=== PATIENT | female | born 1955 | race Hispanic/Latino ===

== ENCOUNTER 2018-04-26 01:33 | Inpatient (IN) | payer OTHER ==
[2018-04-26] MEDS ORDERED: NORMODYNE IV ONE (02:19)
--- NOTE | 2018-04-26 02:19 | Emergency Department Report ---
ED General Adult HPI - General Chief complaint: High BP Stated complaint: HEADACHE/AMS Time Seen by Provider: 04/26/18 02:11 Source: patient, EMS Mode of arrival: Stretcher Limitations: No Limitations - History of Present Illness Initial comments: Patient is that she was feeling dizzy and confused yesterday. -: Sudden, This evening Location: head Radiation: non-radiation Severity scale (0 -10): 6 Consistency: intermittent Improves with: none Worsens with: none Associated Symptoms: confusion, headaches Treatments Prior to Arrival: none - Related Data Allergies Allergy/AdvReac Type Severity Reaction Status Date / Time codeine Allergy Unknown Verified 04/26/18 01:46 meperidine Allergy Unknown Verified 04/26/18 01:46 Penicillins Allergy Unknown Verified 04/26/18 01:46 ED Review of Systems ROS: Stated complaint: HEADACHE/AMS Other details as noted in HPI Comment: All other systems reviewed and negative Constitutional: denies: chills, fever Eyes: denies: eye pain, eye discharge, vision change ENT: denies: ear pain, throat pain Respiratory: denies: cough, shortness of breath, wheezing Cardiovascular: denies: chest pain, palpitations Endocrine: no symptoms reported Gastrointestinal: denies: abdominal pain, nausea, diarrhea Genitourinary: denies: urgency, dysuria, discharge Musculoskeletal: denies: back pain, joint swelling, arthralgia Skin: denies: rash, lesions Neurological: headache, confusion. denies: weakness, paresthesias Psychiatric: denies: anxiety, depression Hematological/Lymphatic: denies: easy bleeding, easy bruising ED Past Medical Hx - Past Medical History Previous Medical History?: Yes Hx Deep Vein Thrombosis: Yes (left leg) Hx Pulmonary Embolism: Yes (right lung) Hx Arthritis: Yes (knees) - Surgical History Past Surgical History?: No Hx Cholecystectomy: Yes - Social History Smoking Status: Never Smoker Substance Use Type: None ED Physical Exam - General Limitations: No Limitations General appearance: alert, in no apparent distress - Head Head exam: Present: atraumatic, normocephalic - Eye Eye exam: Present: normal appearance, PERRL, EOMI Pupils: Present: normal accommodation - ENT ENT exam: Present: normal exam, normal orophraynx, mucous membranes moist - Neck Neck exam: Present: normal inspection - Respiratory Respiratory exam: Present: normal lung sounds bilaterally. Absent: respiratory distress, wheezes, rales, rhonchi - Cardiovascular Cardiovascular Exam: Present: regular rate, normal rhythm. Absent: systolic murmur, diastolic murmur, rubs, gallop - GI/Abdominal GI/Abdominal exam: Present: soft, normal bowel sounds - Extremities Exam Extremities exam: Present: normal inspection, normal capillary refill - Back Exam Back exam: Present: normal inspection - Neurological Exam Neurological exam: Present: alert, oriented X3 - Psychiatric Psychiatric exam: Present: normal affect, normal mood - Skin Skin exam: Present: warm, dry, intact, normal color. Absent: rash ED Course Vital Signs 04/26/18 04/26/18 04/26/18 01:44 01:55 02:00 Temperature Pulse Rate 89 Respiratory 18 15 Rate Blood Pressure 205/105 O2 Sat by Pulse 94 93 Oximetry 04/26/18 04/26/18 04/26/18 02:15 02:30 02:45 Temperature Pulse Rate 106 H 93 H 91 H Respiratory 15 14 16 Rate Blood Pressure 215/139 189/106 189/106 O2 Sat by Pulse 96 96 94 Oximetry 04/26/18 04/26/18 04/26/18 03:00 04:07 04:14 Temperature 98.6 F Pulse Rate 82 86 Respiratory 13 Rate Blood Pressure 155/78 155/78 O2 Sat by Pulse 92 95 Oximetry 04/26/18 04:15 Temperature Pulse Rate 87 Respiratory 14 Rate Blood Pressure 155/78 O2 Sat by Pulse 94 Oximetry - Consultations Consultation #1: 04/26/18 05:37 I called [facility] and spoke to Dr Cavazos who recommend that patient be admitted and treated at [facility]. Consultation #2: 04/26/18 05:38 Dr Jay to admit patient for further management. ED Medical Decision Making - Lab Data Result diagrams: 04/26/18 02:27 04/26/18 02:27 Lab Results 04/26/18 04/26/18 04/26/18 Range/Units 02:27 02:27 02:27 WBC 10.8 (4.5-11.0) K/mm3 RBC 4.75 (3.65-5.03) M/mm3 Hgb 14.1 (10.1-14.3) gm/dl Hct 40.4 (30.3-42.9) % MCV 85 (79-97) fl MCH 30 (28-32) pg MCHC 35 H (30-34) % RDW 13.5 (13.2-15.2) % Plt Count 276 (140-440) K/mm3 Lymph % (Auto) 20.2 (13.4-35.0) % [place] % (Auto) 7.1 (0.0-7.3) % Eos % (Auto) 3.0 (0.0-4.3) % Baso % (Auto) 1.1 (0.0-1.8) % Lymph # 2.2 (1.2-5.4) K/mm3 [place] # 0.8 (0.0-0.8) K/mm3 Eos # 0.3 (0.0-0.4) K/mm3 Baso # 0.1 (0.0-0.1) K/mm3 Seg Neutrophils % 68.6 (40.0-70.0) % Seg Neutrophils # 7.4 (1.8-7.7) K/mm3 PT 12.9 (12.2-14.9) Sec. INR 0.92 (0.87-1.13) APTT 21.6 L (24.2-36.6) Sec. Sodium 139 (137-145) mmol/L Potassium 3.4 L (3.6-5.0) mmol/L Chloride 99.3 (98-107) mmol/L Carbon Dioxide 25 (22-30) mmol/L Anion Gap 18 mmol/L BUN 12 (7-17) mg/dL Creatinine 0.7 (0.7-1.2) mg/dL Estimated GFR > 60 ml/min BUN/Creatinine Ratio 17 % Glucose 157 H (65-100) mg/dL Calcium 9.3 (8.4-10.2) mg/dL Total Bilirubin 0.30 (0.1-1.2) mg/dL AST 23 (5-40) units/L ALT 26 (7-56) units/L Alkaline Phosphatase 72 (35-129) units/L Total Creatine Kinase (30-135) units/L Troponin T (0.00-0.029) ng/mL NT-Pro-B Natriuret Pep (0-900) pg/mL Total Protein 7.4 (6.3-8.2) g/dL Albumin 4.1 (3.9-5) g/dL Albumin/Globulin Ratio 1.2 % 04/26/18 Range/Units 02:27 WBC (4.5-11.0) K/mm3 RBC (3.65-5.03) M/mm3 Hgb (10.1-14.3) gm/dl Hct (30.3-42.9) % MCV (79-97) fl MCH (28-32) pg MCHC (30-34) % RDW (13.2-15.2) % Plt Count (140-440) K/mm3 Lymph % (Auto) (13.4-35.0) % [place] % (Auto) (0.0-7.3) % Eos % (Auto) (0.0-4.3) % Baso % (Auto) (0.0-1.8) % Lymph # (1.2-5.4) K/mm3 [place] # (0.0-0.8) K/mm3 Eos # (0.0-0.4) K/mm3 Baso # (0.0-0.1) K/mm3 Seg Neutrophils % (40.0-70.0) % Seg Neutrophils # (1.8-7.7) K/mm3 PT (12.2-14.9) Sec. INR (0.87-1.13) APTT (24.2-36.6) Sec. Sodium (137-145) mmol/L Potassium (3.6-5.0) mmol/L Chloride (98-107) mmol/L Carbon Dioxide (22-30) mmol/L Anion Gap mmol/L BUN (7-17) mg/dL Creatinine (0.7-1.2) mg/dL Estimated GFR ml/min BUN/Creatinine Ratio % Glucose (65-100) mg/dL Calcium (8.4-10.2) mg/dL Total Bilirubin (0.1-1.2) mg/dL AST (5-40) units/L ALT (7-56) units/L Alkaline Phosphatase (35-129) units/L Total Creatine Kinase 161 H (30-135) units/L Troponin T < 0.010 (0.00-0.029) ng/mL NT-Pro-B Natriuret Pep 182.7 (0-900) pg/mL Total Protein (6.3-8.2) g/dL Albumin (3.9-5) g/dL Albumin/Globulin Ratio % - Radiology Data Radiology results: report reviewed, image reviewed CXR is negative. CT head without contrast - Medical Decision Making Hypertensive Encephalopathy. Critical Care Time: Yes Critical care time in (mins) excluding proc time.: 35 Critical care attestation.: If time is entered above; I have spent that time in minutes in the direct care of this critically ill patient, excluding procedure time. ED Disposition Clinical Impression: Hypertensive encephalopathy Disposition: 09 OP ADMIT IP TO THIS HOSP Is pt being admited?: Yes Does the pt Need Aspirin: No Condition: Stable Referrals: PRIMARY CARE, [Primary Care Provider] - 3-5 Days Time of Disposition: 05:37
[2018-04-26] MEDS ORDERED: ZOFRAN IV ONE (02:20)
[2018-04-26 02:42] LABS: Basophils # (Auto) 0.1 K/mm3 (0.0-0.1); Basophils % (Auto) 1.1 % (0.0-1.8); Eosinophils # (Auto) 0.3 K/mm3 (0.0-0.4); Hematocrit 40.4 % (30.3-42.9); Hemoglobin 14.1 gm/dl (10.1-14.3); Lymphocytes # (Auto) 2.2 K/mm3 (1.2-5.4); Lymphocytes % (Auto) 20.2 % (13.4-35.0); Mean Corpuscular HGB Conc 35 % (30-34); Mean Corpuscular Volume 85 fl (79-97); Monocytes # (Auto) 0.8 K/mm3 (0.0-0.8); Monocytes % (Auto) 7.1 % (0.0-7.3); Platelet Count 276 K/mm3 (140-440); Red Blood Count 4.75 M/mm3 (3.65-5.03); Red Cell Distribution Width 13.5 % (13.2-15.2)
[2018-04-26 02:50] LABS: INR 0.92 (0.87-1.13)
[2018-04-26 02:51] LABS: Partial Thromboplastin Time 21.6 Sec. (24.2-36.6)
--- NOTE | 2018-04-26 03:02 | XRay Report ---
FINAL REPORT PROCEDURE: XRAY CHEST 2 VIEWS TECHNIQUE: PA and lateral chest radiographs were obtained. CPT 17827 HISTORY: HTN COMPARISON: No prior studies are available for comparison. FINDINGS: Heart: Normal. Mediastinum/Vessels: Normal. Lungs/Pleural space: Normal. Bony thorax: No acute osseous abnormality. Other: IMPRESSION: Normal examination.
[2018-04-26 03:03] LABS: Alanine Aminotransferase 26 units/L (7-56); Albumin 4.1 g/dL (3.9-5); BUN/Creatinine Ratio 17; Blood Urea Nitrogen 12 mg/dL (7-17); Calcium 9.3 mg/dL (8.4-10.2); Hemolysis Index 19
[2018-04-26] MEDS ORDERED: K-DUR PO ONE ×2 (03:29→06:08)
--- NOTE | 2018-04-26 04:51 | Cat Scan Report ---
FINAL REPORT PROCEDURE: CT HEAD/BRAIN WO CON TECHNIQUE: Computerized tomography of the head was performed without contrast material. HISTORY: Headache COMPARISON: No prior studies are available for comparison. FINDINGS: Skull and scalp: Normal. Paranasal sinuses: Normal. Ventricles and subarachnoid spaces: Normal. Cerebrum: No evidence of hemorrhage, acute infarction or mass . Cerebellum and brainstem: No evidence of hemorrhage, acute infarction or mass. Vasculature: Normal. Comments: None. IMPRESSION: Normal Examination
[2018-04-26] MEDS ORDERED: TYLENOL PO PRN (05:59)
[2018-04-26] MEDS ORDERED: ZOFRAN IV PRN (06:01)
[2018-04-26] MEDS: APRESOLINE IV PRN (07:52)
--- NOTE | 2018-04-26 08:18 | History and Physical Report ---
CHIEF COMPLAINT: Change in mental status. Other complaint includes elevated blood pressure. HISTORY OF PRESENT ILLNESS: The patient is a 63-year-old female brought in because of change in mental status. Also, the patient had complained of headache. The patient said that she has been feeling dizzy since the day prior to presentation and then became confuse with headache and denied history of chest pain, denied history of shortness of breath, nausea, vomiting, or fever and she was found to have high blood pressure in the Emergency Room, although the patient stated that she does not have history of high blood pressure but was found to have blood pressure as high as 215 systolic and 139 diastolic. There is no history of blurry vision. PAST MEDICAL HISTORY: Pertinent for DVT in the left leg, pulmonary embolism in the right lung, arthritis. PAST SURGICAL HISTORY: Pertinent for cholecystectomy. FAMILY HISTORY: Family history is noncontributory. SOCIAL HISTORY: The patient does not smoke, does not drink alcohol, and does not use illicit drugs. MEDICATIONS: The patient's home medications are not known. ALLERGIES: THE PATIENT IS ALLERGIC TO PENICILLIN AND MEPERIDINE AND CODEINE. REVIEW OF SYSTEMS: CONSTITUTIONAL: There is no fever, no chills, no diaphoresis. HEENT: There is headache, but no sore throat. CARDIOVASCULAR SYSTEM: There is no chest pain or orthopnea. RESPIRATORY SYSTEM: There is no shortness of breath or cough. GASTROINTESTINAL SYSTEM: There is no nausea, no vomiting. No abdominal pain, diarrhea, or constipation. NEUROLOGICAL SYSTEM: Change in mental status noted, headache noted, no numbness, and also dizziness is noted. MUSCULOSKELETAL SYSTEM: There is no joint pain or swelling. DERMATOLOGICAL SYSTEM: There is no skin rash or itching. GENITOURINARY SYSTEM: There is no dysuria, hematuria, or flank pain. Rest of system review is normal. PHYSICAL EXAMINATION: GENERAL: At the time of exam, the patient was found to be alert, oriented x 3 and not in acute distress. VITAL SIGNS: At the initial time of presentation show normal temperature of about 98.6, pulse of 106, respiration 15, blood pressure 215/139, O2 sat of 96% on room air. HEENT: Shows pupils to be equal, round, reactive to light and accommodating. Extraocular muscles are intact. NECK: Neck is supple with no JVD or carotid bruit. CARDIOVASCULAR SYSTEM: Shows normal first and second heart sounds with no gallops or murmurs. RESPIRATORY SYSTEM: Shows good air entry on both sides of the lungs with no abnormal breath sounds. GASTROINTESTINAL SYSTEM: Shows abdomen to be full, soft, nontender with no organomegaly or rigidity. NEUROLOGICAL: Neuro exam shows no focal deficit. MUSCULOSKELETAL SYSTEM: Shows no joint swelling. DERMATOLOGICAL SYSTEM: Shows no skin rash. GENITOURINARY SYSTEM: Showing no costovertebral angle tenderness. PERTINENT LABORATORY DATA AND IMAGING STUDIES: The patient had CBC done which came back unremarkable. Coagulation studies were unremarkable. The patient's chemistry shows slightly decreased potassium level of 3.4 and rest of chemistry was unremarkable. Imaging studies, the patient had a CT of the head without contrast done that came back normal and the patient also had chest x-ray that was normal. DIAGNOSES: 1. Hypertensive encephalopathy. 2. Hypokalemia. PLAN OF CARE: 1. The patient will be admitted to remote telemetry. The blood pressure has come down and the patient is oriented x 3 and the patient will be on IV hydralazine 10 mg every 4 hours for blood pressure of 160/90 or more. The patient will also be on hydrochlorothiazide 12.5 mg 1 every day and will be on Tylenol 650 mg every 4 hours as needed for headache and fever. 2. The patient will be on Zofran 4 mg IV every 8 hours for nausea and vomiting. 3. The patient will have additional 20 mEq of potassium by mouth. 4. The patient will be on oxygen by nasal cannula at 2 liter per minute. 5. The patient's home medications will be started after they are known and reconciled. 6. The patient's diet will be 2 g sodium diet. JOB# [id number] OCN/NTS KENIAD
--- NOTE | 2018-04-26 09:51 | Event Note ---
Date: 04/26/18 63-year-old female patient was admitted with altered level of consciousness uncontrolled blood pressures and headache this morning Patient is started on multiple antihypertensives, blood pressures closely monitored medications optimized, Has mild hypokalemia which was corrected, Agree with the current management Possible discharge in 1-2 days if stable Plan of care reviewed with the patient and her nurse
[2018-04-26] MEDS: HCTZ PO SCH (10:01)
[2018-04-26] MEDS: ZESTRIL PO SCH (10:01)
[2018-04-26] MEDS: LOPRESSOR PO SCH ×2 (10:02→22:00)
[2018-04-26] MEDS: APRESOLINE PO SCH ×3 (10:02→22:00)
[2018-04-26 11:03] LABS: Amphetamine Screen,Urine PRESUMPTIVE NEGATIVE; Benzodiazepines Screen,Urine PRESUMPTIVE NEGATIVE; Cannabinoid Screen,Urine PRESUMPTIVE NEGATIVE; Cocaine Screen,Urine PRESUMPTIVE NEGATIVE; Methadone Screen,Urine PRESUMPTIVE NEGATIVE; Opiate Screen,Urine PRESUMPTIVE NEGATIVE
[2018-04-26] MEDS ORDERED: XANAX PO ONE (22:18)
[2018-04-27 06:33] LABS: Calcium 9.4 mg/dL (8.4-10.2)
[2018-04-27] MEDS: APRESOLINE PO SCH ×3 (07:06→22:26)
[2018-04-27] MEDS: LOPRESSOR PO SCH ×2 (11:05→22:26)
[2018-04-27] MEDS: HCTZ PO SCH (11:05)
[2018-04-27] MEDS: ZESTRIL PO SCH (11:05)
[2018-04-27] MEDS ORDERED: AFLURIA QUAD 2018-2019 SYRINGE IM ONE (12:00)
--- NOTE | 2018-04-27 15:02 | Progress Note ---
Hospitalist Physical - Constitutional Vitals: Temp Pulse Resp BP Pulse Ox 98.2 F 83 16 163/81 96 04/27/18 14:28 04/27/18 14:56 04/27/18 14:28 04/27/18 14:56 04/27/18 14:28 Results - Labs CBC & Chem 7: 04/26/18 02:27 04/27/18 05:34 Labs: Laboratory Last Values WBC 10.8 K/mm3 (4.5-11.0) 04/26/18 02:27 RBC 4.75 M/mm3 (3.65-5.03) 04/26/18 02:27 Hgb 14.1 gm/dl (10.1-14.3) 04/26/18 02:27 Hct 40.4 % (30.3-42.9) 04/26/18 02:27 MCV 85 fl (79-97) 04/26/18 02:27 MCH 30 pg (28-32) 04/26/18 02:27 MCHC 35 % (30-34) H 04/26/18 02:27 RDW 13.5 % (13.2-15.2) 04/26/18 02:27 Plt Count 276 K/mm3 (140-440) 04/26/18 02:27 Lymph % (Auto) 20.2 % (13.4-35.0) 04/26/18 02:27 [place] % (Auto) 7.1 % (0.0-7.3) 04/26/18 02:27 Eos % (Auto) 3.0 % (0.0-4.3) 04/26/18 02:27 Baso % (Auto) 1.1 % (0.0-1.8) 04/26/18 02:27 Lymph # 2.2 K/mm3 (1.2-5.4) 04/26/18 02:27 [place] # 0.8 K/mm3 (0.0-0.8) 04/26/18 02:27 Eos # 0.3 K/mm3 (0.0-0.4) 04/26/18 02:27 Baso # 0.1 K/mm3 (0.0-0.1) 04/26/18 02:27 Seg Neutrophils % 68.6 % (40.0-70.0) 04/26/18 02:27 Seg Neutrophils # 7.4 K/mm3 (1.8-7.7) 04/26/18 02:27 PT 12.9 Sec. (12.2-14.9) 04/26/18 02:27 INR 0.92 (0.87-1.13) 04/26/18 02:27 APTT 21.6 Sec. (24.2-36.6) L 04/26/18 02:27 Sodium 142 mmol/L (137-145) 04/27/18 05:34 Potassium 3.9 mmol/L (3.6-5.0) 04/27/18 05:34 Chloride 101.9 mmol/L (98-107) 04/27/18 05:34 Carbon Dioxide 27 mmol/L (22-30) 04/27/18 05:34 Anion Gap 17 mmol/L 04/27/18 05:34 BUN 18 mg/dL (7-17) H 04/27/18 05:34 Creatinine 1.0 mg/dL (0.7-1.2) 04/27/18 05:34 Estimated GFR 56 ml/min 04/27/18 05:34 BUN/Creatinine Ratio 18 % 04/27/18 05:34 Glucose 124 mg/dL (65-100) H 04/27/18 05:34 Calcium 9.4 mg/dL (8.4-10.2) 04/27/18 05:34 Total Bilirubin 0.30 mg/dL (0.1-1.2) 04/26/18 02:27 AST 23 units/L (5-40) 04/26/18 02:27 ALT 26 units/L (7-56) 04/26/18 02:27 Alkaline Phosphatase 72 units/L (35-129) 04/26/18 02:27 Total Creatine Kinase 161 units/L (30-135) H 04/26/18 02:27 Troponin T < 0.010 ng/mL (0.00-0.029) 04/26/18 02:27 NT-Pro-B Natriuret Pep 182.7 pg/mL (0-900) 04/26/18 02:27 Total Protein 7.4 g/dL (6.3-8.2) 04/26/18 02:27 Albumin 4.1 g/dL (3.9-5) 04/26/18 02:27 Albumin/Globulin Ratio 1.2 % 04/26/18 02:27 Urine Opiates Screen Presumptive negative 04/26/18 10:47 Urine Methadone Screen Presumptive negative 04/26/18 10:47 Ur Barbiturates Screen Presumptive negative 04/26/18 10:47 Ur Phencyclidine Scrn Presumptive negative 04/26/18 10:47 Ur Amphetamines Screen Presumptive negative 04/26/18 10:47 U Benzodiazepines Scrn Presumptive negative 04/26/18 10:47 Urine Cocaine Screen Presumptive negative 04/26/18 10:47 U Marijuana (THC) Screen Presumptive negative 04/26/18 10:47 Drugs of Abuse Note Disclamer 04/26/18 10:47
--- NOTE | 2018-04-27 16:53 | Progress Note ---
Assessment and Plan Assessment and plan: --Hypertensive emergency; present on admission On multiple antihypertensives, wanted control Continue current medications, when necessary hydralazine --Headache; present on admission, probably secondary to hypertensive encephalopathy Not resolved, if she continues to have headaches, may check MRI brain CT head without contrast is negative --Medical noncompliance; patient strongly advised to comply with medications Follow-up visits, diet and exercise, patient verbalized understanding --History of depression; patient's daughter recently Not on any medications, denies suicidal thoughts and ideation Consult psych --, DVT prophylaxis; Lovenox Closely monitor the patient and adjust management as needed DC planning. Case discussed with case management History Interval history: Patient seen and examined this morning medical records reviewed No new events reported by the nursing staff, Blood pressures are reasonable control Patient is fidgety and, had an episode of agitation last night requiring restraints for safety Alert awake responding appropriately Not in distress, vital signs reviewed Hospitalist Physical - Constitutional Vitals: Temp Pulse Resp BP Pulse Ox 98.5 F 86 22 189/95 94 04/27/18 16:42 04/27/18 16:42 04/27/18 16:42 04/27/18 16:42 04/27/18 16:42 General appearance: Present: no acute distress, well-nourished, other (sometimes restless) - EENT Eyes: Present: PERRL, EOM intact - Neck Neck: Present: supple, normal ROM - Respiratory Respiratory effort: normal Respiratory: bilateral: diminished, negative: rales, rhonchi, wheezing - Cardiovascular Rhythm: regular Heart Sounds: Present: S1 & S2 - Extremities Extremities: no ischemia, No edema - Abdominal General gastrointestinal: soft, non-tender, non-distended, normal bowel sounds - Integumentary Integumentary: Present: clear, warm - Psychiatric Psychiatric: appropriate mood/affect, cooperative - Neurologic Neurologic: CNII-XII intact, moves all extremities Results - Labs CBC & Chem 7: 04/26/18 02:27 04/27/18 05:34 Labs: Laboratory Last Values WBC 10.8 K/mm3 (4.5-11.0) 04/26/18 02:27 RBC 4.75 M/mm3 (3.65-5.03) 04/26/18 02:27 Hgb 14.1 gm/dl (10.1-14.3) 04/26/18 02:27 Hct 40.4 % (30.3-42.9) 04/26/18 02:27 MCV 85 fl (79-97) 04/26/18 02:27 MCH 30 pg (28-32) 04/26/18 02:27 MCHC 35 % (30-34) H 04/26/18 02:27 RDW 13.5 % (13.2-15.2) 04/26/18 02:27 Plt Count 276 K/mm3 (140-440) 04/26/18 02:27 Lymph % (Auto) 20.2 % (13.4-35.0) 04/26/18 02:27 [place] % (Auto) 7.1 % (0.0-7.3) 04/26/18 02:27 Eos % (Auto) 3.0 % (0.0-4.3) 04/26/18 02:27 Baso % (Auto) 1.1 % (0.0-1.8) 04/26/18 02:27 Lymph # 2.2 K/mm3 (1.2-5.4) 04/26/18 02:27 [place] # 0.8 K/mm3 (0.0-0.8) 04/26/18 02:27 Eos # 0.3 K/mm3 (0.0-0.4) 04/26/18 02:27 Baso # 0.1 K/mm3 (0.0-0.1) 04/26/18 02:27 Seg Neutrophils % 68.6 % (40.0-70.0) 04/26/18 02:27 Seg Neutrophils # 7.4 K/mm3 (1.8-7.7) 04/26/18 02:27 PT 12.9 Sec. (12.2-14.9) 04/26/18 02:27 INR 0.92 (0.87-1.13) 04/26/18 02:27 APTT 21.6 Sec. (24.2-36.6) L 04/26/18 02:27 Sodium 142 mmol/L (137-145) 04/27/18 05:34 Potassium 3.9 mmol/L (3.6-5.0) 04/27/18 05:34 Chloride 101.9 mmol/L (98-107) 04/27/18 05:34 Carbon Dioxide 27 mmol/L (22-30) 04/27/18 05:34 Anion Gap 17 mmol/L 04/27/18 05:34 BUN 18 mg/dL (7-17) H 04/27/18 05:34 Creatinine 1.0 mg/dL (0.7-1.2) 04/27/18 05:34 Estimated GFR 56 ml/min 04/27/18 05:34 BUN/Creatinine Ratio 18 % 04/27/18 05:34 Glucose 124 mg/dL (65-100) H 04/27/18 05:34 Calcium 9.4 mg/dL (8.4-10.2) 04/27/18 05:34 Total Bilirubin 0.30 mg/dL (0.1-1.2) 04/26/18 02:27 AST 23 units/L (5-40) 04/26/18 02:27 ALT 26 units/L (7-56) 04/26/18 02:27 Alkaline Phosphatase 72 units/L (35-129) 04/26/18 02:27 Total Creatine Kinase 161 units/L (30-135) H 04/26/18 02:27 Troponin T < 0.010 ng/mL (0.00-0.029) 04/26/18 02:27 NT-Pro-B Natriuret Pep 182.7 pg/mL (0-900) 04/26/18 02:27 Total Protein 7.4 g/dL (6.3-8.2) 04/26/18 02:27 Albumin 4.1 g/dL (3.9-5) 04/26/18 02:27 Albumin/Globulin Ratio 1.2 % 04/26/18 02:27 Urine Opiates Screen Presumptive negative 04/26/18 10:47 Urine Methadone Screen Presumptive negative 04/26/18 10:47 Ur Barbiturates Screen Presumptive negative 04/26/18 10:47 Ur Phencyclidine Scrn Presumptive negative 04/26/18 10:47 Ur Amphetamines Screen Presumptive negative 04/26/18 10:47 U Benzodiazepines Scrn Presumptive negative 04/26/18 10:47 Urine Cocaine Screen Presumptive negative 04/26/18 10:47 U Marijuana (THC) Screen Presumptive negative 04/26/18 10:47 Drugs of Abuse Note Disclamer 04/26/18 10:47
[2018-04-27] MEDS ORDERED: XANAX PO PRN (17:03)
[2018-04-27] MEDS: APRESOLINE IV PRN (20:02)
[2018-04-28] MEDS: APRESOLINE PO SCH ×3 (05:56→22:00)
[2018-04-28 06:01] LABS: BUN/Creatinine Ratio 25; Blood Urea Nitrogen 20 mg/dL (7-17); Calcium 9.6 mg/dL (8.4-10.2); Chol/HDL Ratio 5.58 %; HDL Cholesterol 39 mg/dL (40-59); Hemolysis Index 7; LDL Cholesterol,Direct 156 mg/dL (50-130)
[2018-04-28] MEDS: APRESOLINE IV PRN (06:23)
[2018-04-28] MEDS: LOPRESSOR PO SCH ×2 (11:00→22:00)
[2018-04-28] MEDS: ZESTRIL PO SCH (11:00)
[2018-04-28] MEDS: HCTZ PO SCH (11:00)
[2018-04-28] MEDS ORDERED: ASPIRIN PO SCH (12:15)
[2018-04-28] MEDS ORDERED: ASPIRIN ONE (12:16)
[2018-04-28] MEDS ORDERED: ASPIRIN PO ONE (12:50)
[2018-04-28] MEDS ORDERED: SODIUM CHLORIDE FLUSH SYRINGE 10 ML IV PRN (12:51)
--- NOTE | 2018-04-28 14:08 | Consultation ---
History of Present Illness - Reason for Consult Consult date: 04/28/18 Reason for consult: Mental Health Evaluation Requesting physician: IZAIAH SALGADO - Chief Complaint Chief complaint: "The patient is lethargic and nonverbal" - History of Present Psychiatric Illness 63 y.o. white female who presented to the ER for confusion and dizziness. Psychiatry was consulted to see the patient for depression. Today the patient is nonverbal and lethargic during the assessment. She was more ridget on her right side than her left side of her body. She did attempt to follow simple commands. Medications and Allergies Allergies Allergy/AdvReac Type Severity Reaction Status Date / Time codeine Allergy Unknown Verified 04/26/18 01:46 meperidine Allergy Unknown Verified 04/26/18 01:46 Penicillins Allergy Unknown Verified 04/26/18 01:46 Active Meds: Active Medications Acetaminophen (Tylenol) 650 mg PO Q4H PRN PRN Reason: Headache Aspirin (Aspirin) 325 mg PO QDAY [facility] Aspirin (Aspirin) 325 mg PO ONCE ONE Stop: 04/28/18 12:51 Atorvastatin Calcium (Lipitor) 40 mg PO QHS [facility] Hydralazine HCl (Apresoline) 10 mg IV Q4H PRN PRN Reason: Blood Pressure Last Admin: 04/28/18 06:23 Dose: 10 mg Documented by: Hydralazine HCl (Apresoline) 25 mg PO Q8HR [facility] Last Admin: 04/28/18 05:56 Dose: 25 mg Documented by: Hydrochlorothiazide (Hctz) 12.5 mg PO DAILY [facility] Last Admin: 04/28/18 11:00 Dose: 12.5 mg Documented by: Lisinopril (Zestril) 20 mg PO QDAY [facility] Last Admin: 04/28/18 11:00 Dose: 20 mg Documented by: Metoprolol Tartrate (Lopressor) 25 mg PO BID [facility] Last Admin: 04/28/18 11:00 Dose: 25 mg Documented by: Ondansetron HCl (Zofran) 4 mg IV Q8H PRN PRN Reason: Nausea And Vomiting Sodium Chloride (Sodium Chloride Flush Syringe 10 Ml) 10 ml INJ PRN PRN PRN Reason: LINE FLUSH Past psychiatric history - Past Medical History Past Medical History: other (Unable to obtain ) Past Surgical History: Other (Unable to obtain) - past Psychiatric treatment and history psychiatric treatment history: Unable to obtain a psy hx and fam psy hx. - Social History Social history: other (Unable to obtain) Mental Status Exam - Vital signs Last Vital Signs Temp 97.8 F 04/28/18 12:13 Pulse 103 H 04/28/18 05:58 Resp 20 04/28/18 12:13 BP 144/62 04/28/18 12:13 Pulse Ox 96 04/28/18 05:58 - Exam Narrative exam: Unable to complete the MSE because of the patient's condition. Results Result Diagrams: 04/26/18 02:27 04/28/18 04:14 Abnormal lab results 04/28/18 Range/Units 04:14 Chloride 94.8 L (98-107) mmol/L BUN 20 H (7-17) mg/dL Glucose 138 H (65-100) mg/dL Cholesterol 218 H (50-199) mg/dL LDL Cholesterol Direct 156 H (50-130) mg/dL HDL Cholesterol 39 L (40-59) mg/dL All other labs normal. Assessment and Plan Assessment and plan: Impression: Delirium. Today the patient is nonverbal and lethargic during the assessment. Medical: Hypertensive Encephalopathy, MRI of the head was ordered by the hospitalist Recommendation/Plan: Psy sign off, reconsult once patient is more oriented. Recommend Delirium precautions below: 1. Frequently reorient patient and involve him/her in their care (simple explanations of procedures, tests, medications). 2. Lights on and shades open during daytime hours. 3. Write date and goals of care in a visible place. 4. Try to avoid unnecessary interruptions to sleep during nighttime hours. 5. Obtain glasses, hearing aids from home if patient uses these at baseline. 6. Avoid medications that may exacerbate delirium (especially narcotics, benzodiazepines, barbiturates, ambien, lunesta, and medications with excessive anticholinergic properties). 7. Recommend Haldol 2 mg IM Q6hrs PRN for acute agitation. Staffed with Dr Elisa Thomas.
--- NOTE | 2018-04-28 14:54 | Vascular Lab Report ---
FINAL REPORT EXAM: VL CAROTID DUPLEX BILAT HISTORY: rt weakness/CVA TECHNIQUE: Grayscale and color and spectral Doppler ultrasound imaging of the carotid arteries was p erformed. PRIORS: None. FINDINGS: No areas of complete occlusion. Normal waveforms are seen throughout. No aneurysm. Calcified and nonc alcified atherosclerotic plaque is seen. Normal flow is seen in the external carotid arteries. The ve rtebral arteries were not visualized. Peak systolic velocities in cm/s below: Right: CCA: 67 proximally, 86 distally ICA: 102 proximally, 58 mid, 69 distally ECA: 120 Left: CCA: 67 proximally, 101 distally ICA: 73 proximally, 45 mid, 66 distally ECA: 150 The right ICA:CCA ratio is 1.5. The left ICA:CCA ratio is 1.1. IMPRESSION: 1. Less than 50 percent stenosis of the internal carotid arteries. 2. Vertebral arteries not visualized.
--- NOTE | 2018-04-28 15:07 | Magnetic Resonance Report ---
MRI OF THE BRAIN WITHOUT CONTRAST: HISTORY: Altered level of consciousness PROCEDURE: Multiplanar, multisequence MR imaging of the brain without IV contrast was performed. FINDINGS: The CT head without contrast dated 04/26/18 was reviewed. MRI demonstrates multiple areas of diffusion restriction in the left cerebral hemisphere. A 6.6 x 4.9 cm area of diffusion restriction is identified in the left posterior temporal/parietal region consistent with acute ischemia. There is a linear area of diffusion restriction in the medial left frontal and parietal lobes measuring up to 6.3 x 1.4 cm as well. This appears to be in the watershed region between the left JEAN CLAUDE and MCA distributions. There is mild edema and sulcal effacement in these areas but no evidence for hemorrhage or significant mass effect. A chronic focal infarcts measuring 1 cm is identified in the right kim radiata and right frontal white matter. There are mild nonspecific chronic white matter changes bilaterally. The midline structures are central. The basal cisterns are patent. Normal ventricular size. The orbital cavities and sella turcica demonstrate no abnormality. The visualized paranasal sinuses and mastoid air cells are well aerated. IMPRESSION: Moderate to large areas of subacute ischemia in the posterior division of the left MCA and watershed regions between the left JEAN CLAUDE/MCA. Chronic focal infarcts in the right kim radiata and right frontal white matter. Nonspecific chronic white matter changes.
[2018-04-28] MEDS ORDERED: CARDENE 50 MG in NACL 0.9% 250ML 230 ML IV SCH (16:00)
--- NOTE | 2018-04-28 16:07 | Progress Note ---
Assessment and Plan Assessment and plan: --Possible acute CVA; Not a candidate for TPA ,Aspirin, statin MRI brain, echocardiogram, carotid Doppler, CTA neck CTA of brain Neurology consult Stroke protocol initiated --Hypertensive emergency; present on admission Patient's blood pressure is uncontrolled, consider Cardene drip Continue current antihypertensives --Headache present on admission; continue supportive care probably secondary to hypertensive encephalopathy Continue supportive care CT head at the time of admission negative for acute abnormalities --Severe metabolic encephalopathy, probably secondary to uncontrolled blood pressures Hypertensive encephalopathy, possible stroke --Obesity; BMI 35.8 Patient needs weight reduction and medically stable Follow neuro workup, neurology evaluation and recommendations Will discuss with the family noted no changes Plan of care is reviewed with the nurse Also discussed the charge nurse and nurse customs compliance manager History Interval history: Patient was admitted with hypertensive emergency, with altered level of consciousness intermittent, hypertensive encephalopathy, confused agitated requiring restraints last night This morning patient is noncommunicative agitated with mild right-sided weakness Unresponsive to verbal commands Son was at the bedside, Hospitalist Physical - Constitutional Vitals: Temp Pulse Resp BP Pulse Ox 97.8 F 103 H 20 144/62 96 04/28/18 12:13 04/28/18 05:58 04/28/18 12:13 04/28/18 12:13 04/28/18 05:58 General appearance: Present: mild distress, well-nourished, obese, other (confused, noncommunicative and not responding to verbal commands) - EENT Eyes: Present: PERRL, EOM intact - Neck Neck: Present: supple - Respiratory Respiratory effort: normal Respiratory: bilateral: diminished, negative: rales, rhonchi, wheezing - Cardiovascular Rhythm: regular Heart Sounds: Present: S1 & S2 - Extremities Extremities: no ischemia, No edema - Abdominal General gastrointestinal: soft, non-tender, non-distended, normal bowel sounds - Integumentary Integumentary: Present: clear, warm - Psychiatric Psychiatric: other (confused and agitated) - Neurologic Neurologic: other (right-sided weakness) Results - Labs CBC & Chem 7: 04/26/18 02:27 04/28/18 04:14 Labs: Laboratory Last Values WBC 10.8 K/mm3 (4.5-11.0) 04/26/18 02:27 RBC 4.75 M/mm3 (3.65-5.03) 04/26/18 02:27 Hgb 14.1 gm/dl (10.1-14.3) 04/26/18 02:27 Hct 40.4 % (30.3-42.9) 04/26/18 02:27 MCV 85 fl (79-97) 04/26/18 02:27 MCH 30 pg (28-32) 04/26/18 02: MCHC 35 % (30-34) H 04/26/18 02: RDW 13.5 % (13.2-15.2) 04/26/18 02:27 Plt Count 276 K/mm3 (140-440) 04/26/18 02:27 Lymph % (Auto) 20.2 % (13.4-35.0) 04/26/18 02:27 [place] % (Auto) 7.1 % (0.0-7.3) 04/26/18 02:27 Eos % (Auto) 3.0 % (0.0-4.3) 04/26/18 02:27 Baso % (Auto) 1.1 % (0.0-1.8) 04/26/18 02:27 Lymph # 2.2 K/mm3 (1.2-5.4) 04/26/18 02: [place] # 0.8 K/mm3 (0.0-0.8) 04/26/18 02:27 Eos # 0.3 K/mm3 (0.0-0.4) 04/26/18 02:27 Baso # 0.1 K/mm3 (0.0-0.1) 04/26/18 02:27 Seg Neutrophils % 68.6 % (40.0-70.0) 04/26/18 02:27 Seg Neutrophils # 7.4 K/mm3 (1.8-7.7) 04/26/18 02:27 PT 12.9 Sec. (12.2-14.9) 04/26/18 02:27 INR 0.92 (0.87-1.13) 04/26/18 02:27 APTT 21.6 Sec. (24.2-36.6) L 04/26/18 02:27 Sodium 137 mmol/L (137-145) 04/28/18 04:14 Potassium 3.6 mmol/L (3.6-5.0) 04/28/18 04:14 Chloride 94.8 mmol/L (98-107) L 04/28/18 04:14 Carbon Dioxide 25 mmol/L (22-30) 04/28/18 04:14 Anion Gap 21 mmol/L 04/28/18 04:14 BUN 20 mg/dL (7-17) H 04/28/18 04:14 Creatinine 0.8 mg/dL (0.7-1.2) 04/28/18 04:14 Estimated GFR > 60 ml/min 04/28/18 04:14 BUN/Creatinine Ratio 25 % 04/28/18 04:14 Glucose 138 mg/dL (65-100) H 04/28/18 04:14 POC Glucose 109 (70-105) H 04/28/18 15:15 Calcium 9.6 mg/dL (8.4-10.2) 04/28/18 04:14 Total Bilirubin 0.30 mg/dL (0.1-1.2) 04/26/18 02:27 AST 23 units/L (5-40) 04/26/18 02:27 ALT 26 units/L (7-56) 04/26/18 02:27 Alkaline Phosphatase 72 units/L (35-129) 04/26/18 02:27 Total Creatine Kinase 161 units/L (30-135) H 04/26/18 02:27 Troponin T < 0.010 ng/mL (0.00-0.029) 04/26/18 02:27 NT-Pro-B Natriuret Pep 182.7 pg/mL (0-900) 04/26/18 02:27 Total Protein 7.4 g/dL (6.3-8.2) 04/26/18 02:27 Albumin 4.1 g/dL (3.9-5) 04/26/18 02:27 Albumin/Globulin Ratio 1.2 % 04/26/18 02:27 Triglycerides 103 mg/dL (2-149) 04/28/18 04:14 Cholesterol 218 mg/dL (50-199) H 04/28/18 04:14 LDL Cholesterol Direct 156 mg/dL (50-130) H 04/28/18 04:14 HDL Cholesterol 39 mg/dL (40-59) L 04/28/18 04:14 Cholesterol/HDL Ratio 5.58 % 04/28/18 04:14 Urine Opiates Screen Presumptive negative 04/26/18 10:47 Urine Methadone Screen Presumptive negative 04/26/18 10:47 Ur Barbiturates Screen Presumptive negative 04/26/18 10:47 Ur Phencyclidine Scrn Presumptive negative 04/26/18 10:47 Ur Amphetamines Screen Presumptive negative 04/26/18 10:47 U Benzodiazepines Scrn Presumptive negative 04/26/18 10:47 Urine Cocaine Screen Presumptive negative 04/26/18 10:47 U Marijuana (THC) Screen Presumptive negative 04/26/18 10:47 Drugs of Abuse Note Disclamer 04/26/18 10:47
--- NOTE | 2018-04-28 17:16 | Event Note ---
Date: 04/28/18 Patient underwent MRI brain;Moderate to large area of subacute ischemia posterior division of left MCA and watershed regions between the left JEAN CLAUDE and MCA, Chronic focal infarcts in the right kim radiata and right temporal white matter Nonspecific chronic white matter changes --Carotid Doppler; no hemodynamically significant stenosis less than 50% --CT head done on; 04/26/2018 , normal study --CTA neck; pending --CTA head; pending Neurology consulted , Dr. Araiza recommend transfer to ICU for close observation Haydee Rivers as needed Patient transferred to ICU, requested critical care consult, discussed with I discussed with the son Mr.Jason Ragsdale [phone] the new developments And MRI findings. Answered all his questions Total Critical care time 45 minutes I also discussed with [place] physician ;
--- NOTE | 2018-04-28 17:55 | Consultation ---
History of Present Illness Consult date: 04/28/18 Requesting physician: IZAIAH SALGADO Reason for consult: other (Acute CVA) Past History Past Medical History: other (Unable to obtain ) Past Surgical History: Other (Unable to obtain) Social history: other (Unable to obtain) Medications and Allergies Allergies Allergy/AdvReac Type Severity Reaction Status Date / Time codeine Allergy Unknown Verified 04/26/18 01:46 meperidine Allergy Unknown Verified 04/26/18 01:46 Penicillins Allergy Unknown Verified 04/26/18 01:46 Active Meds: Active Medications Aspirin (Aspirin) 325 mg PO QDAY [facility] Atorvastatin Calcium (Lipitor) 40 mg PO QHS [facility] Hydralazine HCl (Apresoline) 10 mg IV Q4H PRN PRN Reason: Blood Pressure Last Admin: 04/28/18 06:23 Dose: 10 mg Documented by: Hydralazine HCl (Apresoline) 25 mg PO Q8HR [facility] Last Admin: 04/28/18 14:00 Dose: Not Given Documented by: Hydrochlorothiazide (Hctz) 12.5 mg PO DAILY [facility] Last Admin: 04/28/18 11:00 Dose: 12.5 mg Documented by: Nicardipine HCl 50 mg/ Sodium (Chloride) 250 mls @ 25 mls/hr IV TITR [facility]; Protocol Lisinopril (Zestril) 20 mg PO QDAY [facility] Last Admin: 04/28/18 11:00 Dose: 20 mg Documented by: Metoprolol Tartrate (Lopressor) 25 mg PO BID [facility] Last Admin: 04/28/18 11:00 Dose: 25 mg Documented by: Ondansetron HCl (Zofran) 4 mg IV Q8H PRN PRN Reason: Nausea And Vomiting Sodium Chloride (Sodium Chloride Flush Syringe 10 Ml) 10 ml IV PRN PRN PRN Reason: LINE FLUSH Physical Examination Vital signs: Vital Signs Resp 18 04/26/18 01:44 Results - Laboratory Findings CBC and BMP: 04/26/18 02:27 04/28/18 04:14 PT/INR, D-dimer PT 12.9 Sec. (12.2-14.9) 04/26/18 02:27 INR 0.92 (0.87-1.13) 04/26/18 02:27 Abnormal lab findings: Abnormal Labs 04/26/18 04/26/1819 02:27 02:27 02:27 MCHC 35 H APTT 21.6 L Potassium 3.4 L Chloride BUN Glucose 157 H POC Glucose Total Creatine Kinase Cholesterol LDL Cholesterol Direct HDL Cholesterol 04/26/18 04/27/18 04/28/18 02:27 05:34 04:14 MCHC APTT Potassium Chloride 94.8 L BUN 18 H 20 H Glucose 124 H 138 H POC Glucose Total Creatine Kinase 161 H Cholesterol 218 H LDL Cholesterol Direct 156 H HDL Cholesterol 39 L 04/28/18 15:15 MCHC APTT Potassium Chloride BUN Glucose POC Glucose 109 H Total Creatine Kinase Cholesterol LDL Cholesterol Direct HDL Cholesterol
[2018-04-29 06:10] LABS: Basophils # (Auto) 0.1 K/mm3 (0.0-0.1); Basophils % (Auto) 0.5 % (0.0-1.8); Eosinophils % (Auto) 0.3 % (0.0-4.3); Hematocrit 44.8 % (30.3-42.9); Hemoglobin 14.7 gm/dl (10.1-14.3); Lymphocytes # (Auto) 2.1 K/mm3 (1.2-5.4); Lymphocytes % (Auto) 15.9 % (13.4-35.0); Mean Corpuscular HGB Conc 33 % (30-34); Mean Corpuscular Volume 87 fl (79-97); Monocytes # (Auto) 1.3 K/mm3 (0.0-0.8); Monocytes % (Auto) 9.6 % (0.0-7.3); Platelet Count 322 K/mm3 (140-440); Red Blood Count 5.13 M/mm3 (3.65-5.03); Red Cell Distribution Width 14.1 % (13.2-15.2)
[2018-04-29 06:28] LABS: Calcium 9.8 mg/dL (8.4-10.2)
[2018-04-29] MEDS: APRESOLINE PO SCH ×3 (06:30→21:58)
[2018-04-29] MEDS: HCTZ PO SCH (09:38)
[2018-04-29] MEDS: LOPRESSOR PO SCH ×2 (09:39→21:59)
[2018-04-29] MEDS: ZESTRIL PO SCH (09:40)
[2018-04-29] MEDS ORDERED: ASPIRIN PO SCH (10:00)
--- NOTE | 2018-04-29 13:17 | Consultation ---
History of Present Illness Consult date: 04/29/18 Requesting physician: IZAIAH SALGADO History of present illness: 63-year-old female patient was admitted with altered level of consciousness unco ntrolled blood pressures and headaches Patient is started on multiple antihypertensives, blood pressures closely monitored medications optimized and was admitted to the medical floor with telemetry. There was an acute deterioration in he mental status , with worsening neurologic function. Based on neurology recommendations a critical care consult has been requested and transfer to the ICU. Patient was seen and examined. Vitals, labs, medications, chart and imaging were reviewed. She is unable to give any history at this time. She is lying quietly in bed, aphasic on oxygen at 2L/min. 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 denies: smoking, alcohol abuse, prescription drug abuse, IV drug use Family history: hypertension (late daughter. No family history of brain aneurysms.), stroke (father, and daughter recently of stroke related to hypertension), other (father) Past History Past Medical History: other (Unable to obtain ) Past Surgical History: Other (Unable to obtain) Social history: other (Unable to obtain) Medications and Allergies Allergies Allergy/AdvReac Type Severity Reaction Status Date / Time codeine Allergy Unknown Verified 04/26/18 01:46 meperidine Allergy Unknown Verified 04/26/18 01:46 Penicillins Allergy Unknown Verified 04/26/18 01:46 Active Meds: Active Medications Aspirin (Aspirin) 325 mg PO QDAY [facility] Last Admin: 04/29/18 09:38 Dose: 325 mg Documented by: Atorvastatin Calcium (Lipitor) 40 mg PO QHS [facility] Last Admin: 04/28/18 23:14 Dose: 40 mg Documented by: Heparin Sodium (Porcine) (Heparin) 5,000 unit SUB-Q Q8HR [facility] Hydralazine HCl (Apresoline) 10 mg IV Q4H PRN PRN Reason: Blood Pressure Last Admin: 04/28/18 06:23 Dose: 10 mg Documented by: Hydralazine HCl (Apresoline) 25 mg PO Q8HR [facility] Last Admin: 04/29/18 06:30 Dose: Not Given Documented by: Hydrochlorothiazide (Hctz) 12.5 mg PO DAILY [facility] Last Admin: 04/29/18 09:38 Dose: 12.5 mg Documented by: Nicardipine HCl 50 mg/ Sodium (Chloride) 250 mls @ 25 mls/hr IV TITR [facility]; Protocol Lisinopril (Zestril) 20 mg PO QDAY [facility] Last Admin: 04/29/18 09:40 Dose: 20 mg Documented by: Metoprolol Tartrate (Lopressor) 25 mg PO BID [facility] Last Admin: 04/29/18 09:39 Dose: 25 mg Documented by: Ondansetron HCl (Zofran) 4 mg IV Q8H PRN PRN Reason: Nausea And Vomiting Sodium Chloride (Sodium Chloride Flush Syringe 10 Ml) 10 ml IV PRN PRN PRN Reason: LINE FLUSH Review of Systems ROS unobtainable: due to mental status Physical Examination Vital signs: Vital Signs Resp 18 04/26/18 01:44 General appearance: Present: mild distress, well-nourished, obese, other (confused, noncommunicative and not responding to verbal commands) - EENT Eyes: Present: PERRL, EOM intact - Neck Neck: Present: supple - Respiratory Respiratory effort: normal Respiratory: bilateral: diminished, negative: rales, rhonchi, wheezing - Cardiovascular Rhythm: regular Heart Sounds: Present: S1 & S2 - Extremities Extremities: no ischemia, No edema - Abdominal General gastrointestinal: soft, non-tender, non-distended, normal bowel sounds - Integumentary Integumentary: Present: clear, warm - Psychiatric Psychiatric: other (confused and agitated) - Neurologic Neurologic: other (right-sided weakness Results - Laboratory Findings CBC and BMP: 04/30/18 04:24 05/01/18 15:14 PT/INR, D-dimer PT 12.9 Sec. (12.2-14.9) 04/26/18 02:27 INR 0.92 (0.87-1.13) 04/26/18 02:27 Abnormal lab findings: Abnormal Labs 04/26/18 04/26/18 04/26/18 02:27 02:27 02:27 WBC RBC Hgb Hct MCHC [address] [facility] % (Auto) [facility] # Seg Neutrophils % Seg Neutrophils # APTT 21.6 L Potassium 3.4 L Chloride BUN Creatinine Glucose 157 H POC Glucose Hemoglobin A1c Total Creatine Kinase Cholesterol LDL Cholesterol Direct HDL Cholesterol 04/26/18 04/27/18 04/28/18 02:27 05:34 04:14 WBC RBC Hgb Hct MCHC [facility] % (Auto) [facility] # Seg Neutrophils % Seg Neutrophils # APTT Potassium Chloride 94.8 L BUN 18 H 20 H Creatinine Glucose 124 H 138 H POC Glucose Hemoglobin A1c Total Creatine Kinase 161 H Cholesterol 218 H LDL Cholesterol Direct 156 H HDL Cholesterol 39 L 04/28/18 04/29/18 04/29/18 15:15 05:34 05:34 WBC 13.3 H RBC 5.13 H Hgb 14.7 H Hct 44.[address] [facility] % (Auto) 9.[address] [facility] [place] # 1.3 H Seg Neutrophils % 73.7 H Seg Neutrophils # 9.8 H APTT Potassium Chloride BUN Creatinine Glucose POC Glucose 109 H Hemoglobin A1c 6.5 H Total Creatine Kinase Cholesterol LDL Cholesterol Direct HDL Cholesterol 04/29/18 04/29/18 05:34 12:21 WBC RBC Hgb Hct MCHC [facility] [place] % (Auto) [facility] [place] # Seg Neutrophils % Seg Neutrophils # APTT Potassium Chloride 97.7 L BUN 39 H Creatinine 1.7 H D Glucose 154 H POC Glucose 130 H Hemoglobin A1c Total Creatine Kinase Cholesterol LDL Cholesterol Direct HDL Cholesterol - Diagnostic Findings Chest x-ray: image reviewed (Borderline cardiomegaly, no acute infiltrates ) Additional studies: MRI brain;Moderate to large area of subacute ischemia posterior division of left MCA and watershed regions between the left [place] and MCA, Chronic focal infarcts in the right kim radiata and right temporal white matter, Nonspecific chronic white matter changes --Carotid Doppler; no hemodynamically significant stenosis less than 50% --CT head done on; 04/26/2018 , normal study Assessment and Plan Acute Left CVA; with right-sided hemiparesis/aphasia ( not a candidate for TPA) Hypertensive emergency; present on admission Headache present on admission, probably secondary to hypertensive encephalopathy Severe metabolic encephalopathy, multifactorial Obesity; BMI 35.8 -Admit ICU -Secondary stroke prophylaxis Statin, antiplatelet therapy, blood pressure control - Modified diet ( mechanical soft) with aspiration precautions -Seen by WAREHOUSE TECHNICIAN, state patient is stable for oral intake -VTE prophylaxis -Life style modifications and weight loss when stable -Supplemental oxygen to keep O2 sats>90% -Accucheck with glycemic control. -Target blood glucose 140 - 180mg/DL -Avoid hypoglycemia -PT/OT to evaluate and treat -Replete electrolytes as indicated -Possible acute rehabilitation when medically stable -Continue to monitor in ICU for another 24 hours Plan of care is reviewed with hospitalist and neurologist CONDITION: CRITICAL PROGNOSIS: GUARDED CODE STATUS: FULL The high probability of a clinically significant, sudden or life threatening deterioration of the [ neurology ,cardiac ,metabolic ] system(s) required my full and direct attention, intervention and personal management.The aggregate critical care time was [32] minutes. This time is in addition to time spent performing reported procedures but includes the following: [x] Data Review and interpretation [x] Patient assessment and monitoring of vital signs [x] Documentation [x] Medication orders and management
--- NOTE | 2018-04-29 13:41 | Progress Note ---
Assessment and Plan Assessment and plan: --Acute Left CVA; with right-sided hemiparesis Not a candidate for TPA ,Aspirin and statin, physical therapy and occupational therapy speech therapy Good control of blood pressures, neurology following, Swallowing evaluation noted, advised mechanical soft diet --Workup so far: MRI brain;Moderate to large area of subacute ischemia posterior division of left MCA and watershed regions between the left [place] and MCA, Chronic focal infarcts in the right ikm radiata and right temporal white matter, Nonspecific chronic white matter changes --Carotid Doppler; no hemodynamically significant stenosis less than 50% --CT head done on; 04/26/2018 , normal study --CTA neck; pending --CTA head; pending --Hypertensive emergency; present on admission Blood pressure is well controlled today --Headache present on admission; resolved probably secondary to hypertensive encephalopathy CT head at the time of admission negative for acute abnormalities --Severe metabolic encephalopathy, multifactorial Supportive care --Obesity; BMI 35.8 Patient needs weight reduction when medically stable Physical therapy and occupational therapy rehabilitation Possible acute rehabilitation when medically stable Plan of care is reviewed with her son at the bedside and I also discussed with neurologist Dr. Araiza The high probability of a clinically significant, sudden or life threatening deterioration of the [ neuro,cardiac ,metabolic ] system(s) required my full and direct attention, intervention and personal management.The aggregate critical care time was [32] minutes. This time is in addition to time spent performing reported procedures but includes the following: [x] Data Review and interpretation [x] Patient assessment and monitoring of vital signs [x] Documentation [x] Medication orders and management History Interval history: Patient seen and examined medical records reviewed patient is alert and awake but aphasic, Not in acute distress Speech therapist recommended mechanical soft diet Vital signs noted Hospitalist Physical - Constitutional Vitals: Temp Pulse Resp BP Pulse Ox 98.9 F 110 H 23 179/89 90 04/29/18 04:00 04/29/18 09:40 04/29/18 07:00 04/29/18 09:40 04/29/18 07:00 General appearance: Present: no acute distress, well-nourished, obese, other (aphasic) - EENT Eyes: Present: PERRL, EOM intact - Neck Neck: Present: supple, normal ROM - Respiratory Respiratory effort: normal Respiratory: bilateral: diminished, negative: rales, rhonchi, wheezing - Cardiovascular Rhythm: regular Heart Sounds: Present: S1 & S2 - Extremities Extremities: no ischemia, No edema - Abdominal General gastrointestinal: soft, non-tender, non-distended, normal bowel sounds - Integumentary Integumentary: Present: clear, warm - Psychiatric Psychiatric: other ( aphasia) - Neurologic Neurologic: other (acute CVA with right-sided hemiparesis, aphasia) Results - Labs CBC & Chem 7: 04/29/18 05:34 04/29/18 05:34 Labs: Laboratory Last Values WBC 13.3 K/mm3 (4.5-11.0) H 04/29/18 05:34 RBC 5.13 M/mm3 (3.65-5.03) H 04/29/18 05:34 Hgb 14.7 gm/dl (10.1-14.3) H 04/29/18 05:34 Hct 44.8 % (30.3-42.9) H 04/29/18 05:34 MCV 87 fl (79-97) 04/29/18 05:34 MCH 29 pg (28-32) 04/29/18 05:34 MCHC 33 % (30-34) 04/29/18 05:34 RDW 14.1 % (13.2-15.2) 04/29/18 05:34 Plt Count 322 K/mm3 (140-440) 04/29/18 05:34 Lymph % (Auto) 15.9 % (13.4-35.0) 04/29/18 05:34 [place] % (Auto) 9.6 % (0.0-7.3) H 04/29/18 05:34 Eos % (Auto) 0.3 % (0.0-4.3) 04/29/18 05:34 Baso % (Auto) 0.5 % (0.0-1.8) 04/29/18 05:34 Lymph # 2.1 K/mm3 (1.2-5.4) 04/29/18 05:34 [place] # 1.3 K/mm3 (0.0-0.8) H 04/29/18 05:34 Eos # 0.0 K/mm3 (0.0-0.4) 04/29/18 05:34 Baso # 0.1 K/mm3 (0.0-0.1) 04/29/18 05:34 Seg Neutrophils % 73.7 % (40.0-70.0) H 04/29/18 05:34 Seg Neutrophils # 9.8 K/mm3 (1.8-7.7) H 04/29/18 05:34 PT 12.9 Sec. (12.2-14.9) 04/26/18 02:27 INR 0.92 (0.87-1.13) 04/26/18 02:27 APTT 25.7 Sec. (24.2-36.6) 04/28/18 15:41 Sodium 138 mmol/L (137-145) 04/29/18 05:34 Potassium 3.7 mmol/L (3.6-5.0) 04/29/18 05:34 Chloride 97.7 mmol/L (98-107) L 04/29/18 05:34 Carbon Dioxide 23 mmol/L (22-30) 04/29/18 05:34 Anion Gap 21 mmol/L 04/29/18 05:34 BUN 39 mg/dL (7-17) H 04/29/18 05:34 Creatinine 1.7 mg/dL (0.7-1.2) H D 04/29/18 05:34 Estimated GFR 31 ml/min 04/29/18 05:34 BUN/Creatinine Ratio 23 % 04/29/18 05:34 Glucose 154 mg/dL (65-100) H 04/29/18 05:34 POC Glucose 130 (70-105) H 04/29/18 12:21 Hemoglobin A1c 6.5 % (4-6) H 04/29/18 05:34 Calcium 9.8 mg/dL (8.4-10.2) 04/29/18 05:34 Magnesium 2.10 mg/dL (1.7-2.3) 04/29/18 05:34 Total Bilirubin 0.30 mg/dL (0.1-1.2) 04/26/18 02:27 AST 23 units/L (5-40) 04/26/18 02:27 ALT 26 units/L (7-56) 04/26/18 02:27 Alkaline Phosphatase 72 units/L (35-129) 04/26/18 02:27 Total Creatine Kinase 161 units/L (30-135) H 04/26/18 02:27 Troponin T < 0.010 ng/mL (0.00-0.029) 04/26/18 02:27 NT-Pro-B Natriuret Pep 182.7 pg/mL (0-900) 04/26/18 02:27 Total Protein 7.4 g/dL (6.3-8.2) 04/26/18 02:27 Albumin 4.1 g/dL (3.9-5) 04/26/18 02:27 Albumin/Globulin Ratio 1.2 % 04/26/18 02:27 Triglycerides 103 mg/dL (2-149) 04/28/18 04:14 Cholesterol 218 mg/dL (50-199) H 04/28/18 04:14 LDL Cholesterol Direct 156 mg/dL (50-130) H 04/28/18 04:14 HDL Cholesterol 39 mg/dL (40-59) L 04/28/18 04:14 Cholesterol/HDL Ratio 5.58 % 04/28/18 04:14 Urine Opiates Screen Presumptive negative 04/26/18 10:47 Urine Methadone Screen Presumptive negative 04/26/18 10:47 Ur Barbiturates Screen Presumptive negative 04/26/18 10:47 Ur Phencyclidine Scrn Presumptive negative 04/26/18 10:47 Ur Amphetamines Screen Presumptive negative 04/26/18 10:47 U Benzodiazepines Scrn Presumptive negative 04/26/18 10:47 Urine Cocaine Screen Presumptive negative 04/26/18 10:47 U Marijuana (THC) Screen Presumptive negative 04/26/18 10:47 Drugs of Abuse Note Disclamer 04/26/18 10:47
--- NOTE | 2018-04-29 13:54 | Consultation ---
History of Present Illness Consult date: 04/29/18 Requesting physician: IZAIAH SALGADO Reason for Consult: stroke Chief complaint: stroke History of present illness: This 63-year-old right-handed white female according to her son, per her boyf jody was acting a bit oddly on Friday. According to Dr. Salgado she was still ambulatory until yesterday when right-sided weakness was noted. Her son says Friday she cannot complete sentences in the hospital. MRI shows medium- sized left anterior parietal and posterior frontal cortical stroke along with stroke changes acutely periventricularly on the left as well as some old peripheral lacunar strokes on FLAIR. There is no mass effect. She had very high blood pressures when coming into the hospital but has not needed the Cardene drip I suggested. CT scan had shown no acute changes. 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 denies: smoking, alcohol abuse, prescription drug abuse, IV drug use Family history: hypertension (late daughter. No family history of brain aneurysms.), stroke (father, and daughter recently of stroke related to hypertension), other (father) Medications and Allergies Allergies Allergy/AdvReac Type Severity Reaction Status Date / Time codeine Allergy Unknown Verified 04/26/18 01:46 meperidine Allergy Unknown Verified 04/26/18 01:46 Penicillins Allergy Unknown Verified 04/26/18 01:46 Active Meds: Active Medications Aspirin (Aspirin) 325 mg PO QDAY [facility] Last Admin: 04/29/18 09:38 Dose: 325 mg Documented by: Atorvastatin Calcium (Lipitor) 40 mg PO QHS [facility] Last Admin: 04/28/18 23:14 Dose: 40 mg Documented by: Heparin Sodium (Porcine) (Heparin) 5,000 unit SUB-Q Q8HR [facility] Hydralazine HCl (Apresoline) 10 mg IV Q4H PRN PRN Reason: Blood Pressure Last Admin: 04/28/18 06:23 Dose: 10 mg Documented by: Hydralazine HCl (Apresoline) 25 mg PO Q8HR [facility] Last Admin: 04/29/18 06:30 Dose: Not Given Documented by: Hydrochlorothiazide (Hctz) 12.5 mg PO DAILY [facility] Last Admin: 04/29/18 09:38 Dose: 12.5 mg Documented by: Nicardipine HCl 50 mg/ Sodium (Chloride) 250 mls @ 25 mls/hr IV TITR [facility]; Protocol Lisinopril (Zestril) 20 mg PO QDAY [facility] Last Admin: 04/29/18 09:40 Dose: 20 mg Documented by: Metoprolol Tartrate (Lopressor) 25 mg PO BID [facility] Last Admin: 04/29/18 09:39 Dose: 25 mg Documented by: Ondansetron HCl (Zofran) 4 mg IV Q8H PRN PRN Reason: Nausea And Vomiting Sodium Chloride (Sodium Chloride Flush Syringe 10 Ml) 10 ml IV PRN PRN PRN Reason: LINE FLUSH Review of Systems All systems: negative (no headaches or dizziness but some snoring per her son, naps a lot because she stays up late, never sleepy driving. No memory problems until Friday or Friday. The paresthesias.) Physical Examination - Vital Signs Vital Signs: Vital Signs Resp 18 04/26/18 01:44 - Physical Exam Narrative exam: General appearance: well developed but obese (per BMI) early 60s white female in NAD, nonverbal. HEENT: atraumatic, normocephalic, Oksana not enlarged or indurated. No bruits. Oropharynx pink and moist. Neck: supple, no bruits. Heart: no murmur or extra sounds. Extremities: no clubbing or cyanosis, no edema. 2+ dorsalis pedis pulses bilaterally. Neurologic Exam: Mental status: awake, alert. Eyes open but tracks a little. Not clearly obeying commands. No response to orientation questions. Cranial nerves: no blink to threat on the right, no papilledema, (+) SVPs, PERRL, EOMs with partially positive Doll's eyes though decreased lateral excursion in the right eye, no response to pinprick, corneals present , no grimace to supraorbital pressure but slight grimace to gag testing, cannot assess Schroeder, gags are positive, cannot assess shoulder shrug or tongue protrusion. Cerebellar: cannot assess. Sensory: no response to pinprick right arm though withdraws left arm and both lower extremities.. Motor Exam Upper Extremities: Extensor posturing right index finger but no response to nailbed pressure or palmar rub. Spontaneous movement of left upper extremities which is at least semipurposeful but no sales store checker to command and will not hold up 2 fingers to command. Increased tone on the right. Motor Exam Lower Extremities: withdraws to plantar rub little bit on the right but much more on the left with some spontaneous motion of the left lower extremity. Increased tone on the right. Reflexes: palmomental is negative, snout is negative, jaw jerk is positive. Triceps, biceps and brachioradialis are trace. Yogi's is negative bilaterally. Knee jerks are trace right and 1+ left, and ankle jerks are 0 without clonus. Toes are upgoing right and downgoing left to Babinski testing. Results - Laboratory Findings CBC and BMP: 04/29/18 05:34 04/29/18 05:34 Abnormal Lab Findings: Abnormal Labs 04/26/18 04/26/18 04/26/18 02:27 02:27 02:27 WBC RBC Hgb Hct MCHC 35 H [place] % (Auto) [place] # Seg Neutrophils % Seg Neutrophils # APTT 21.6 L Potassium 3.4 L Chloride BUN Creatinine Glucose 157 H POC Glucose Hemoglobin A1c Total Creatine Kinase Cholesterol LDL Cholesterol Direct HDL Cholesterol 04/26/18 04/27/18 04/28/18 02:27 05:34 04:14 WBC RBC Hgb Hct MCHC [place] % (Auto) [place] # Seg Neutrophils % Seg Neutrophils # APTT Potassium Chloride 94.8 L BUN 18 H 20 H Creatinine Glucose 124 H 138 H POC Glucose Hemoglobin A1c Total Creatine Kinase 161 H Cholesterol 218 H LDL Cholesterol Direct 156 H HDL Cholesterol 39 L 04/28/18 04/29/18 04/29/18 15:15 05:34 05:34 WBC 13.3 H RBC 5.13 H Hgb 14.7 H Hct 44.8 H MCHC [place] % (Auto) 9.6 H [place] # 1.3 H Seg Neutrophils % 73.7 H Seg Neutrophils # 9.8 H APTT Potassium Chloride BUN Creatinine Glucose POC Glucose 109 H Hemoglobin A1c 6.5 H Total Creatine Kinase Cholesterol LDL Cholesterol Direct HDL Cholesterol 04/29/18 04/29/18 05:34 12:21 WBC RBC Hgb Hct MCHC [place] % (Auto) [place] # Seg Neutrophils % Seg Neutrophils # APTT Potassium Chloride 97.7 L BUN 39 H Creatinine 1.7 H D Glucose 154 H POC Glucose 130 H Hemoglobin A1c Total Creatine Kinase Cholesterol LDL Cholesterol Direct HDL Cholesterol Assessment and Plan Impression: 1. Embolic strokes 2. Hypertension, malignant Plan: 1. Might need hypertonic saline for the large left posterior stroke, which would be difficult to manage here without 30/09 neurology. 2. Will discuss with neuro critical power technician at [place] since the patient is a [place] patient and they are wanting to transfer. She may need only to go to critical care at [place] rather than neuro critical care. 3. Echocardiogram is done but not read. 4. Patient is now on aspirin and a statin but was not on any medications at home according to her son. 40 minutes critical care time spent with this patient. Thank you for an interesting consultation on this unfortunate early 60s lady.
[2018-04-29] MEDS: HEPARIN SUB-Q SCH ×2 (15:23→21:57)
[2018-04-30 05:01] LABS: Basophils # (Auto) 0.1 K/mm3 (0.0-0.1); Basophils % (Auto) 0.5 % (0.0-1.8); Eosinophils # (Auto) 0.1 K/mm3 (0.0-0.4); Eosinophils % (Auto) 0.4 % (0.0-4.3); Hematocrit 43.9 % (30.3-42.9); Hemoglobin 14.7 gm/dl (10.1-14.3); Lymphocytes # (Auto) 2.3 K/mm3 (1.2-5.4); Lymphocytes % (Auto) 15.8 % (13.4-35.0); Mean Corpuscular HGB Conc 34 % (30-34); Mean Corpuscular Volume 87 fl (79-97); Monocytes # (Auto) 1.2 K/mm3 (0.0-0.8); Monocytes % (Auto) 8.3 % (0.0-7.3); Platelet Count 340 K/mm3 (140-440); Red Blood Count 5.03 M/mm3 (3.65-5.03); Red Cell Distribution Width 14.1 % (13.2-15.2)
[2018-04-30 05:20] LABS: Calcium 9.6 mg/dL (8.4-10.2)
[2018-04-30] MEDS: APRESOLINE PO SCH ×2 (06:00→15:18)
[2018-04-30] MEDS: HEPARIN SUB-Q SCH ×3 (07:23→23:38)
[2018-04-30] MEDS: NACL 0.9% 1000 ML 1,000 ML IV SCH ×2 (10:30→20:42)
--- NOTE | 2018-04-30 10:32 | Progress Note ---
Assessment and Plan Assessment and plan: --Acute kidney injury;Vasomotar nephropathy IV hydration and monitor renal function, avoid nephrotoxins Nephrology consultation, renal ultrasound if needed, --Acute Left CVA; with right-sided hemiparesis Not a candidate for TPA ,Aspirin and statin, physical therapy and occupational therapy speech therapy Good control of blood pressures, neurology following, Swallowing evaluation noted, advised mechanical soft diet --Workup so far: MRI brain;Moderate to large area of subacute ischemia posterior division of left MCA and watershed regions between the left JEAN CLAUDE and MCA, Chronic focal infarcts in the right kim radiata and right temporal white matter, Nonspecific chronic white matter ch anges --Carotid Doppler; no hemodynamically significant stenosis less than 50% --CT head done on; 04/26/2018 , normal study --CTA neck; pending --CTA head; pending --Hypertensive emergency; present on admission Blood pressure is well controlled today --Headache present on admission; resolved probably secondary to hypertensive encephalopathy CT head at the time of admission negative for acute abnormalities --Severe metabolic encephalopathy, multifactorial Supportive care --Obesity; BMI 35.8 Patient needs weight reduction when medically stable Physical therapy and occupational therapy rehabilitation Possible acute rehabilitation when medically stable Plan of care is reviewed with her son at the bedside and I also discussed with neurologist Dr. Araiza The high probability of a clinically significant, sudden or life threatening deterioration of the [ neuro,cardiac ,metabolic ] system(s) required my full and direct attention, intervention and personal management.The aggregate critical care time was [33] minutes. This time is in addition to time spent performing reported procedures but includes the following: [x] Data Review and interpretation [x] Patient assessment and monitoring of vital signs [x] Documentation [x] Medication orders and management This discussed with [place] physician Dr. Gallegos and answered all her questions History Interval history: Patient seen and examined medical records reviewed Patient is sleeping, easily awakens Mild hypertension No new events reported by nursing staff Not in acute distress, vital signs reviewed Hospitalist Physical - Constitutional Vitals: Temp Pulse Resp BP Pulse Ox 99.9 F H 80 19 97/54 97 04/30/18 00:00 04/30/18 06:00 04/30/18 06:00 04/30/18 06:00 04/30/18 08:10 General appearance: Present: no acute distress, well-nourished, obese, other (aphasic) - EENT Eyes: Present: PERRL, EOM intact - Neck Neck: Present: supple - Respiratory Respiratory: bilateral: diminished, negative: rales, rhonchi, wheezing - Cardiovascular Rhythm: regular Heart Sounds: Present: S1 & S2 - Extremities Extremities: no ischemia Extremity abnormal: edema - Abdominal General gastrointestinal: soft, non-tender, non-distended, normal bowel sounds - Integumentary Integumentary: Present: clear, warm - Psychiatric Psychiatric: other (aphasic) - Neurologic Neurologic: other (aphasia,Rt.Weakness) Results - Labs CBC & Chem 7: 04/30/18 04:24 04/30/18 04:24 Labs: Laboratory Last Values WBC 14.4 K/mm3 (4.5-11.0) H 04/30/18 04:24 RBC 5.03 M/mm3 (3.65-5.03) 04/30/18 04:24 Hgb 14.7 gm/dl (10.1-14.3) H 04/30/18 04:24 Hct 43.9 % (30.3-42.9) H 04/30/18 04:24 MCV 87 fl (79-97) 04/30/18 04:24 MCH 29 pg (28-32) 04/30/18 04:24 MCHC 34 % (30-34) 04/30/18 04:24 RDW 14.1 % (13.2-15.2) 04/30/18 04:24 Plt Count 340 K/mm3 (140-440) 04/30/18 04:24 Lymph % (Auto) 15.8 % (13.4-35.0) 04/30/18 04:24 [place] % (Auto) 8.3 % (0.0-7.3) H 04/30/18 04:24 Eos % (Auto) 0.4 % (0.0-4.3) 04/30/18 04:24 Baso % (Auto) 0.5 % (0.0-1.8) 04/30/18 04:24 Lymph # 2.3 K/mm3 (1.2-5.4) 04/30/18 04:24 [place] # 1.2 K/mm3 (0.0-0.8) H 04/30/18 04:24 Eos # 0.1 K/mm3 (0.0-0.4) 04/30/18 04:24 Baso # 0.1 K/mm3 (0.0-0.1) 04/30/18 04:24 Seg Neutrophils % 75.0 % (40.0-70.0) H 04/30/18 04:24 Seg Neutrophils # 10.8 K/mm3 (1.8-7.7) H 04/30/18 04:24 PT 12.9 Sec. (12.2-14.9) 04/26/18 02:27 INR 0.92 (0.87-1.13) 04/26/18 02:27 APTT 25.7 Sec. (24.2-36.6) 04/28/18 15:41 Sodium 140 mmol/L (137-145) 04/30/18 04:24 Potassium 3.9 mmol/L (3.6-5.0) 04/30/18 04:24 Chloride 99.5 mmol/L (98-107) 04/30/18 04:24 Carbon Dioxide 23 mmol/L (22-30) 04/30/18 04:24 Anion Gap 21 mmol/L 04/30/18 04:24 BUN 61 mg/dL (7-17) H 04/30/18 04:24 Creatinine 2.5 mg/dL (0.7-1.2) H 04/30/18 04:24 Estimated GFR 20 ml/min 04/30/18 04:24 BUN/Creatinine Ratio 24 % 04/30/18 04:24 Glucose 140 mg/dL (65-100) H 04/30/18 04:24 POC Glucose 126 (70-105) H 04/29/18 15:40 Hemoglobin A1c 6.5 % (4-6) H 04/29/18 05:34 Calcium 9.6 mg/dL (8.4-10.2) 04/30/18 04:24 Magnesium 2.30 mg/dL (1.7-2.3) 04/30/18 04:24 Total Bilirubin 0.30 mg/dL (0.1-1.2) 04/26/18 02:27 AST 23 units/L (5-40) 04/26/18 02:27 ALT 26 units/L (7-56) 04/26/18 02:27 Alkaline Phosphatase 72 units/L (35-129) 04/26/18 02:27 Total Creatine Kinase 161 units/L (30-135) H 04/26/18 02:27 Troponin T < 0.010 ng/mL (0.00-0.029) 04/26/18 02:27 NT-Pro-B Natriuret Pep 182.7 pg/mL (0-900) 04/26/18 02:27 Total Protein 7.4 g/dL (6.3-8.2) 04/26/18 02:27 Albumin 4.1 g/dL (3.9-5) 04/26/18 02:27 Albumin/Globulin Ratio 1.2 % 04/26/18 02:27 Triglycerides 103 mg/dL (2-149) 04/28/18 04:14 Cholesterol 218 mg/dL (50-199) H 04/28/18 04:14 LDL Cholesterol Direct 156 mg/dL (50-130) H 04/28/18 04:14 HDL Cholesterol 39 mg/dL (40-59) L 04/28/18 04:14 Cholesterol/HDL Ratio 5.58 % 04/28/18 04:14 Urine Opiates Screen Presumptive negative 04/26/18 10:47 Urine Methadone Screen Presumptive negative 04/26/18 10:47 Ur Barbiturates Screen Presumptive negative 04/26/18 10:47 Ur Phencyclidine Scrn Presumptive negative 04/26/18 10:47 Ur Amphetamines Screen Presumptive negative 04/26/18 10:47 U Benzodiazepines Scrn Presumptive negative 04/26/18 10:47 Urine Cocaine Screen Presumptive negative 04/26/18 10:47 U Marijuana (THC) Screen Presumptive negative 04/26/18 10:47 Drugs of Abuse Note Disclamer 04/26/18 10:47
[2018-04-30] MEDS: HCTZ PO SCH (10:41)
[2018-04-30] MEDS: LOPRESSOR PO SCH (10:41)
[2018-04-30] MEDS: ZESTRIL PO SCH (10:42)
[2018-04-30] MEDS ORDERED: ASPIRIN PR SCH (11:00)
--- NOTE | 2018-04-30 11:05 | Consultation ---
History of Present Illness - Reason for Consult Consult date: 04/30/18 acute renal failure Requesting physician: IZAIAH SALGADO - History of Present Illness 63-year-old lady with history of hypertension and hyperlipidemia admitted on account of altered mental status. Patient's family member observed she was acting oddly but was still ambulating. She complained of a headache. On the day of present prior to presentation, she developed right-sided weakness and was unable to complete sentences and so was brought to the hospital for further evaluation. Blood pressure was elevated on presentation up to 215/[address] scan of the head showed moderate to large areas of subacute ischemia in posterior division of the left middle cerebral artery. BUN and creatinine were normal at 20/0.8 mg/dL increasing to 39/1.7 mg/dL and today to 6-1/2.5 mg/dL. Consulted to assist in managing this. Patient is not able to give a history as she is drowsy when I examined her now. She has not been exposed to radiocontrast seems presentation and she is not on any nonsteroidal anti- inflammatory drugs. Patient was hypotensive overnight with her blood pressure dropping as low as 97/54 mmHg. 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 denies: smoking, alcohol abuse, prescription drug abuse, IV drug use Family history: hypertension (late daughter. No family history of brain aneurysms.), stroke (father, and daughter recently of stroke related to hypertension), other (father) Medications and Allergies Allergies Allergy/AdvReac Type Severity Reaction Status Date / Time codeine Allergy Unknown Verified 04/26/18 01:46 meperidine Allergy Unknown Verified 04/26/18 01:46 Penicillins Allergy Unknown Verified 04/26/18 01:46 Active Meds: Active Medications Aspirin (Aspirin) [address] Q[address] [facility] Last Admin: 04/30/18 10:31 Dose: 300 mg Documented by: Atorvastatin Calcium (Lipitor) 40 mg PO QHS [facility] Last Admin: 04/29/18 21:59 Dose: 40 mg Documented by: Heparin Sodium (Porcine) (Heparin) 5,000 unit SUB-Q Q8HR [facility] Last Admin: 04/30/18 07:23 Dose: 5,000 unit Documented by: Hydralazine HCl (Apresoline) 10 mg IV Q4H PRN PRN Reason: Blood Pressure Last Admin: 04/28/18 06:23 Dose: 10 mg Documented by: Hydralazine HCl (Apresoline) 25 mg PO Q8HR [facility] Last Admin: 04/30/18 06:00 Dose: Not Given Documented by: Nicardipine HCl 50 mg/ Sodium (Chloride) 250 mls @ 25 mls/hr IV TITR [facility]; Protocol Sodium Chloride (Nacl 0.9% 1000 Ml) 1,000 mls @ 125 mls/hr IV DIRECT [facility] Last Admin: 04/30/18 10:30 Dose: 125 mls/hr Documented by: Metoprolol Tartrate (Lopressor) 25 mg PO BID [facility] Last Admin: 04/30/18 10:41 Dose: Not Given Documented by: Ondansetron HCl (Zofran) 4 mg IV Q8H PRN PRN Reason: Nausea And Vomiting Sodium Chloride (Sodium Chloride Flush Syringe 10 Ml) 10 ml IV PRN PRN PRN Reason: LINE FLUSH Review of Systems ROS unobtainable: due to mental status Exam - Vital Signs Vital signs: Vital Signs Resp 18 04/26/18 01:44 - Physical Exam Narrative exam: Middle aged female in no acute distress HEENT: NCAT, pink and dry oral mucous membrane Neck: Supple, no venous distention CVS: S1S2 RRR with no murmur, rub or gallop Chest: Clear to auscultation Abdomen: Protuberant, soft, nontender, no organomegaly, bowel sounds are present Extremities: No edema Skin warm and dry with no rash Genitourinary: Deferred Neuro: Drowsy, difficult to awaken, not following commands Results - Lab Results 04/30/18 04:24 04/30/18 04:24 Most recent lab results Calcium 9.6 mg/dL (8.4-10.2) 04/30/18 04:24 Magnesium 2.30 mg/dL (1.7-2.3) 04/30/18 04:24 Assessment and Plan - Patient Problems (1) Acute kidney injury Current Visit: Yes Status: Acute Plan to address problem: Suspect prerenal azotemia secondary to hypotension/volume depletion". Blood pressure was low overnight and patient appears volume depleted. Get kidney ultrasound to exclude obstruction. Get urinalysis and check fractional exc retion of sodium. Stop diuretic and hold JOVANY inhibitor with parameters to hold other antihypertensive medications. Gentle volume repletion. Follow-up electrolytes and renal function closely. (2) Hypertensive emergency Current Visit: Yes Status: Acute Plan to address problem: The BP was elevated on presentation but is now low. Parameters to hold antihypertensive medications in place. Goal systolic blood pressure 160 mmHg. Discussed with hospitalist and also discussed with RN at bedside (3) Acute cerebral infarction Current Visit: Yes Status: Acute Plan to address problem: Patient with large ischemic stroke being evaluated by neurologist (4) Hypotension Current Visit: Yes Status: Acute Plan to address problem: Hold diuretic and JOVANY inhibitor. Start intravenous fluids normal saline. Patient has parameters to hold angiotensin medications. (5) Encephalopathy Current Visit: Yes Status: Acute Plan to address problem: Consider repeat CT head if mental status does not improve. Patient being followed by neurologist also.
--- NOTE | 2018-04-30 11:36 | Progress Note ---
Assessment and Plan Acute Hypoxemic Respiratory Failure Acute Left CVA SMILEY Hypertensive Emergency Headache at admission Obesity Acute Encephalopathy - not a tpA candidate at admission - continue supplemental oxygen to keep sats> 90% - continue secondary prevention with anti-lipid, platelet and anti-hypertensive therapy - neurology evaluation ongoing - deploy BIPAP qhs for sleep disortdered breathig s/p CVA - PT/OT - mobility protocol for pressure ulcer prophylaxis - ST evaluation - enteral nutrition if fails - aspiration precautions - GI & VTE prophylaxis - Flu & pneumovax addressed per protocol - continue other care per attending / other consultants .... re-evaluate in am & prn The high probability of a clinically significant, sudden or life-threatening deterioration of the [cardiac, respiratory & neurologic] system(s) required my full and direct attention, intervention and personal management. The aggregate critical care time was [35] minutes without overlap. Time includes spent on; [x] Data Review and interpretation [x] Patient assessment and monitoring of vital signs [x] Documentation [x] Medication orders and management Subjective Date of service: 04/30/18 Principal diagnosis: Acute Hypoxemic Resp Failure; Acute Left CVA; SMILEY; Hypertensive Emergency Interval history: Patient is seen today for: Acute Hypoxemic Respiratory Failure; Acute Left CVA; SMILEY; Hypertensive Emergency; Headache at admission Seen and examined at bedside; 24hour events reviewed; nursing and respiratory care staff consulted; no adverse overnight events reported to me; resting peacefully in bed; + some holly-neglect; on supplemental oxygen; no emesis or overt aspiration; + expressive and receptive aphasia likely Objective Vital Signs - 12hr 04/30/18 04/30/18 04/30/18 00:00 00:30 01:00 Temperature 99.9 F H Pulse Rate 90 74 79 Respiratory 25 H 22 20 Rate Blood Pressure 131/72 152/80 100/61 O2 Sat by Pulse 96 94 89 Oximetry 04/30/18 04/30/18 04/30/18 01:30 02:00 02:30 Temperature Pulse Rate 81 90 78 Respiratory 23 17 22 Rate Blood Pressure 113/68 113/68 113/68 O2 Sat by Pulse 88 92 95 Oximetry 04/30/18 04/30/18 04/30/18 03:00 03:30 04:00 Temperature Pulse Rate 80 81 77 Respiratory 19 19 16 Rate Blood Pressure 115/60 109/53 117/57 O2 Sat by Pulse 98 97 Oximetry 04/30/18 04/30/18 04/30/18 04:30 05:00 05:30 Temperature Pulse Rate 107 H 90 78 Respiratory 31 H 21 21 Rate Blood Pressure 144/99 151/64 151/64 O2 Sat by Pulse 95 94 97 Oximetry 04/30/18 04/30/18 04/30/18 06:00 08:10 10:41 Temperature Pulse Rate 80 88 Respiratory 19 Rate Blood Pressure 97/54 122/61 O2 Sat by Pulse 96 97 Oximetry 04/30/18 10:42 Temperature Pulse Rate 88 Respiratory Rate Blood Pressure 122/61 O2 Sat by Pulse Oximetry Constitutional: alert, appears uncomfortable, other (obese elderly looking CF, normocephalic and atraumatic with mildly increased respiratory effort at rest) Eyes: non-icteric ENT: oropharynx moist, other (large neck circumference) Neck: supple, no lymphadenopathy, no JVD Effort: mildly labored Ascultation: Bilateral: clear, diminished breath sounds Percussion: Bilateral: not dull Cardiovascular: regular rate and rhythm Gastrointestinal: normoactive bowel sounds, soft, non-tender, non-distended Integumentary: normal Extremities: no cyanosis, no edema, pink and warm, pulses normal Neurologic: pupils equal and round, other (right hemiparesis) Psychiatric: other (unable to assess) CBC and BMP: 04/30/18 04:24 05/01/18 04:43 ABG, PT/INR, D-dimer: PT/INR, D-dimer PT 12.9 Sec. (12.2-14.9) 04/26/18 02:27 INR 0.92 (0.87-1.13) 04/26/18 02:27 Abnormal lab findings: Abnormal Labs 04/26/18 04/26/18 04/26/18 02:27 02:27 02:27 WBC RBC Hgb Hct MCHC 35 H [place] % (Auto) [place] # Seg Neutrophils % Seg Neutrophils # APTT 21.6 L Potassium 3.4 L Chloride BUN Creatinine Glucose 157 H POC Glucose Hemoglobin A1c Total Creatine Kinase Cholesterol LDL Cholesterol Direct HDL Cholesterol 04/26/18 04/27/18 04/28/18 02:27 05:34 04:14 WBC RBC Hgb Hct MCHC [place] % (Auto) [place] # Seg Neutrophils % Seg Neutrophils # APTT Potassium Chloride 94.8 L BUN 18 H 20 H Creatinine Glucose 124 H 138 H POC Glucose Hemoglobin A1c Total Creatine Kinase 161 H Cholesterol 218 H LDL Cholesterol Direct 156 H HDL Cholesterol 39 L 04/28/18 04/29/18 04/29/18 15:15 05:34 05:34 WBC 13.3 H RBC 5.13 H Hgb 14.7 H Hct 44.8 H MCHC [place] % (Auto) 9.6 H [place] # 1.3 H Seg Neutrophils % 73.7 H Seg Neutrophils # 9.8 H APTT Potassium Chloride BUN Creatinine Glucose POC Glucose 109 H Hemoglobin A1c 6.5 H Total Creatine Kinase Cholesterol LDL Cholesterol Direct HDL Cholesterol 04/29/18 04/29/18 04/29/18 05:34 12:21 15:40 WBC RBC Hgb Hct MCHC [place] % (Auto) [place] # Seg Neutrophils % Seg Neutrophils # APTT Potassium Chloride 97.7 L BUN 39 H Creatinine 1.7 H D Glucose 154 H POC Glucose 130 H 126 H Hemoglobin A1c Total Creatine Kinase Cholesterol LDL Cholesterol Direct HDL Cholesterol 04/30/18 04/30/18 04:24 04:24 WBC 14.4 H RBC Hgb 14.7 H Hct 43.9 H MCHC [place] % (Auto) 8.3 H [place] # 1.2 H Seg Neutrophils % 75.0 H Seg Neutrophils # 10.8 H APTT Potassium Chloride BUN 61 H Creatinine 2.5 H Glucose 140 H POC Glucose Hemoglobin A1c Total Creatine Kinase Cholesterol LDL Cholesterol Direct HDL Cholesterol Chest x-ray: image reviewed (no acute process) Allied health notes reviewed: nursing
--- NOTE | 2018-04-30 19:08 | Progress Note ---
Assessment and Plan Impression: 1. Embolic stroke 2. Hypertensive encephalopathy Plan: 1. Did EEG, no epileptiform activity. 2. Ordered follow-up CT scan to look for edema. 3. I will order SSRI for help with speech and motor improvement from stroke. 4. Later memantine could be added for speech. 30 min critical care time spent. Subjective Date of service: 04/30/18 Principal diagnosis: stroke Interval history: HPI: This 63 year old female is seen in f/u for stroke. No change clinically. EEG today shows some slowing in the left frontocentral parietal region and at times left centrotemporal region without epileptiform activity. Objective - Exam Narrative Exam: General appearance: well-developed but obese (per BMI) early 60's white female in NAD. 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 Plegic on the right in the upper and lower ext remity. No withdrawal to nail bed pressure or palmar rub in the right upper extremity but withdraws the left lower extremity much more than the right to plantar rub. - Vital Sign Vital Signs - 12hr 04/30/18 04/30/18 04/30/18 07:30 08:00 08:10 Pulse Rate 88 78 Respiratory 18 18 Rate Blood Pressure 104/50 140/61 O2 Sat by Pulse 96 98 97 Oximetry 04/30/18 04/30/18 04/30/18 08:30 09:00 09:30 Pulse Rate 89 79 94 H Respiratory 14 19 21 Rate Blood Pressure 104/50 100/61 100/61 O2 Sat by Pulse 97 93 94 Oximetry 04/30/18 04/30/18 04/30/18 10:00 10:30 10:41 Pulse Rate 87 89 88 Respiratory 18 21 Rate Blood Pressure 133/72 122/61 122/61 O2 Sat by Pulse 96 94 Oximetry 04/30/18 04/30/18 04/30/18 10:42 11:00 11:30 Pulse Rate 88 94 H 95 H Respiratory 19 23 Rate Blood Pressure 122/61 133/58 118/71 O2 Sat by Pulse 94 94 Oximetry 04/30/18 04/30/18 04/30/18 12:00 12:30 13:00 Pulse Rate 108 H 107 H 102 H Respiratory 20 24 20 Rate Blood Pressure 118/71 114/75 183/89 O2 Sat by Pulse 98 97 95 Oximetry 04/30/18 04/30/18 04/30/18 13:30 14:00 14:30 Pulse Rate 108 H 95 H 107 H Respiratory 25 H 19 22 Rate Blood Pressure 137/75 136/64 136/64 O2 Sat by Pulse 95 93 99 Oximetry 04/30/18 04/30/18 04/30/18 15:00 15:18 15:30 Pulse Rate 92 H 85 101 H Respiratory 20 12 Rate Blood Pressure 158/84 143/58 143/60 O2 Sat by Pulse 96 92 Oximetry 04/30/18 04/30/18 04/30/18 16:00 16:30 17:00 Pulse Rate 90 93 H 110 H Respiratory 19 13 21 Rate Blood Pressure 143/60 130/72 180/109 O2 Sat by Pulse 99 97 95 Oximetry 04/30/18 04/30/18 04/30/18 17:30 18:00 18:30 Pulse Rate 106 H 109 H 100 H Respiratory 18 18 16 Rate Blood Pressure 180/109 147/92 147/92 O2 Sat by Pulse 99 95 98 Oximetry - Laboratory Findings CBC and BMP: 04/30/18 04:24 04/30/18 04:24 Abnormal Lab Findings: Abnormal Labs 04/26/18 04/26/18 04/26/18 02:27 02:27 02:27 WBC RBC Hgb Hct MCHC 35 H Daniels % (Auto) Daniels # Seg Neutrophils % Seg Neutrophils # APTT 21.6 L Potassium 3.4 L Chloride BUN Creatinine Glucose 157 H POC Glucose Hemoglobin A1c Total Creatine Kinase Cholesterol LDL Cholesterol Direct HDL Cholesterol 04/26/18 04/27/18 04/28/18 02:27 05:34 04:14 WBC RBC Hgb Hct MCHC Daniels % (Auto) Daniels # Seg Neutrophils % Seg Neutrophils # APTT Potassium Chloride 94.8 L BUN 18 H 20 H Creatinine Glucose 124 H 138 H POC Glucose Hemoglobin A1c Total Creatine Kinase 161 H Cholesterol 218 H LDL Cholesterol Direct 156 H HDL Cholesterol 39 L 04/28/18 04/29/18 04/29/18 15:15 05:34 05:34 WBC 13.3 H RBC 5.13 H Hgb 14.7 H Hct 44.8 H MCHC Daniels % (Auto) 9.6 H Daniels # 1.3 H Seg Neutrophils % 73.7 H Seg Neutrophils # 9.8 H APTT Potassium Chloride BUN Creatinine Glucose POC Glucose 109 H Hemoglobin A1c 6.5 H Total Creatine Kinase Cholesterol LDL Cholesterol Direct HDL Cholesterol 04/29/18 04/29/18 04/29/18 05:34 12:21 15:40 WBC RBC Hgb Hct MCHC Daniels % (Auto) Daniels # Seg Neutrophils % Seg Neutrophils # APTT Potassium Chloride 97.7 L BUN 39 H Creatinine 1.7 H D Glucose 154 H POC Glucose 130 H 126 H Hemoglobin A1c Total Creatine Kinase Cholesterol LDL Cholesterol Direct HDL Cholesterol 04/30/18 04/30/18 04:24 04:24 WBC 14.4 H RBC Hgb 14.7 H Hct 43.9 H MCHC Daniels % (Auto) 8.3 H Daniels # 1.2 H Seg Neutrophils % 75.0 H Seg Neutrophils # 10.8 H APTT Potassium Chloride BUN 61 H Creatinine 2.5 H Glucose 140 H POC Glucose Hemoglobin A1c Total Creatine Kinase Cholesterol LDL Cholesterol Direct HDL Cholesterol
--- NOTE | 2018-04-30 19:15 | Ultrasound Report ---
FINAL REPORT EXAM: US RENAL BILAT HISTORY: Acute kidney injury TECHNIQUE: Retroperitoneal ultrasound PRIORS: None. FINDINGS: The right kidney measures 10.2 x 4.9 x 4.1 centimeters. Cortical thickness 1.3 centimeters The left kidney measures 10.9 x 5.6 x 5.4 centimeters. Cortical thickness 1.4 centimeters There is no evidence of hydronephrosis or nephrolithiasis. Renal parenchyma is within normal limits. Urinary bladder is decompressed. IMPRESSION: Negative. No evidence of obstructive uropathy.
--- NOTE | 2018-04-30 22:33 | Cat Scan Report ---
FINAL REPORT EXAM: CT HEAD/BRAIN WO CON HISTORY: stroke, assess edema TECHNIQUE: CT head without contrast PRIORS: Comparison is dated April 26, 2018 FINDINGS: There is diffuse brain edema pattern extending through dueñas-white matter junction left posterior alfred etal and occipital lobes most consistent with HEAD CHARRER distribution infarct. There is additional edema ext ending along colo also distribution on the left. There is minimal left to right midline shift approxi mately 0.36 centimeters. No acute intra or extra-axial hemorrhage identified. There is some effacemen t of sulci on the left. There is some effacement of the posterior left lateral ventricle. No evidence for hydrocephalus. No additional acute parenchymal abnormalities identified. IMPRESSION: Large acute to subacute left territorial infarct in left posterior parietal, occipital and along the corpus callosum Mild left right midline shift 0.36 centimeters
[2018-05-01] MEDS: celeXA PO SCH ×2 (01:45→11:55)
[2018-05-01] MEDS: APRESOLINE PO SCH ×3 (01:46→17:41)
[2018-05-01] MEDS: LOPRESSOR PO SCH ×2 (01:47→11:56)
[2018-05-01] MEDS: NACL 0.9% 1000 ML 1,000 ML IV SCH (05:32)
[2018-05-01] MEDS: HEPARIN SUB-Q SCH ×2 (05:33→13:50)
--- NOTE | 2018-05-01 11:56 | Progress Note ---
Assessment and Plan Assessment and plan: --Change in mental status; last night stat CT head without contrast Large acute to subacute left territorial infarct in the left posterior parietal occipital along the carpus callosum Mild left to right midline shift 0.36 cm., D/W Neurology ,recom hypertonic saline, repeat CT, patient needs neuro ICU I called [facility] and discussed with , would initiate transfer to [facility] --Acute Left CVA; with right-sided hemiparesis Not a candidate for TPA as time of onset of symptoms not known, Aspirin and statin, blood pressure control, neurology following, Swallowing evaluation noted, advised mechanical soft diet --Acute kidney injury;Vasomotar nephropathy, significantly improved IV hydration ,avoid nephrotoxins, creatinine today 1.3 --Workup so far: MRI brain;Moderate to large area of subacute ischemia posterior division of left MCA and watershed regions between the left JEAN CLAUDE and MCA, Chronic focal infarcts in the right kim radiata and right temporal white matter, Nonspecific chronic white matter changes --Carotid Doppler; no hemodynamically significant stenosis less than 50% --CT head done on; 04/26/2018 , normal study --CTA neck; CTA head; could not be done due to SMILEY --Hypertensive emergency; present on admission Blood pressure well controlled --Headache present on admission; resolved probably secondary to hypertensive encephalopathy CT head at the time of admission negative for acute abnormalities --Severe metabolic encephalopathy, multifactorial Supportive care --Obesity; BMI 35.8 Patient needs weight reduction when medically stable Physical therapy and occupational therapy rehabilitation Possible acute rehabilitation when medically stable Plan of care is reviewed with her son at the bedside and I also discussed with neurologist Dr. Araiza Discussed with [place] physician[ and [phone]] and informed that neurologist Dr. Araiza recommend transfer to neuro ICU Ogilvie [place] initiated the transfer process History Interval history: Patient seen and examined this morning medical records reviewed Patient is more lethargic today, Patient had a CT head for change in mental status Findings reviewed Vital signs noted Hospitalist Physical - Constitutional Vitals: Temp Pulse Resp BP Pulse Ox 98.8 F 88 17 134/62 99 05/01/18 08:00 05/01/18 11:31 05/01/18 11:31 05/01/18 11:31 05/01/18 11:31 General appearance: Present: mild distress, well-nourished, obese, other (lethargic, aphasic) - EENT Eyes: Present: PERRL - Neck Neck: Present: supple - Respiratory Respiratory effort: normal Respiratory: bilateral: diminished, negative: rales, rhonchi, wheezing - Cardiovascular Rhythm: regular Heart Sounds: Present: S1 & S2 - Extremities Extremities: no ischemia, No edema - Abdominal General gastrointestinal: soft, non-tender, non-distended, normal bowel sounds - Integumentary Integumentary: Present: clear, warm - Psychiatric Psychiatric: other (noncommunicative) - Neurologic Neurologic: other (aphasia, lethargy, CVA with right-sided hemiparesis) Results - Labs CBC & Chem 7: 04/30/18 04:24 05/01/18 15:14 Labs: Laboratory Last Values WBC 14.4 K/mm3 (4.5-11.0) H 04/30/18 04:24 RBC 5.03 M/mm3 (3.65-5.03) 04/30/18 04:24 Hgb 14.7 gm/dl (10.1-14.3) H 04/30/18 04:24 Hct 43.9 % (30.3-42.9) H 04/30/18 04:24 MCV 87 fl (79-97) 04/30/18 04:24 MCH 29 pg (28-32) 04/30/18 04:24 MCHC 34 % (30-34) 04/30/18 04:24 RDW 14.1 % (13.2-15.2) 04/30/18 04:24 Plt Count 340 K/mm3 (140-440) 04/30/18 04:24 Lymph % (Auto) 15.8 % (13.4-35.0) 04/30/18 04:24 [place] % (Auto) 8.3 % (0.0-7.3) H 04/30/18 04:24 Eos % (Auto) 0.4 % (0.0-4.3) 04/30/18 04:24 Baso % (Auto) 0.5 % (0.0-1.8) 04/30/18 04:24 Lymph # 2.3 K/mm3 (1.2-5.4) 04/30/18 04:24 [place] # 1.2 K/mm3 (0.0-0.8) H 04/30/18 04:24 Eos # 0.1 K/mm3 (0.0-0.4) 04/30/18 04:24 Baso # 0.1 K/mm3 (0.0-0.1) 04/30/18 04:24 Seg Neutrophils % 75.0 % (40.0-70.0) H 04/30/18 04:24 Seg Neutrophils # 10.8 K/mm3 (1.8-7.7) H 04/30/18 04:24 PT 12.9 Sec. (12.2-14.9) 04/26/18 02:27 INR 0.92 (0.87-1.13) 04/26/18 02:27 APTT 25.7 Sec. (24.2-36.6) 04/28/18 15:41 Sodium 144 mmol/L (137-145) 05/01/18 04:43 Potassium 4.0 mmol/L (3.6-5.0) 05/01/18 04:43 Chloride 107.8 mmol/L (98-107) H 05/01/18 04:43 Carbon Dioxide 22 mmol/L (22-30) 05/01/18 04:43 Anion Gap 18 mmol/L 05/01/18 04:43 BUN 61 mg/dL (7-17) H 05/01/18 04:43 Creatinine 1.3 mg/dL (0.7-1.2) H 05/01/18 04:43 Estimated GFR 42 ml/min 05/01/18 04:43 BUN/Creatinine Ratio 47 % 05/01/18 04:43 Glucose 130 mg/dL (65-100) H 05/01/18 04:43 POC Glucose 102 (70-105) 05/01/18 11:29 Hemoglobin A1c 6.5 % (4-6) H 04/29/18 05:34 Calcium 9.0 mg/dL (8.4-10.2) 05/01/18 04:43 Phosphorus 3.40 mg/dL (2.5-4.5) 05/01/18 04:43 Magnesium 2.40 mg/dL (1.7-2.3) H 05/01/18 04:43 Total Bilirubin 0.30 mg/dL (0.1-1.2) 04/26/18 02:27 AST 23 units/L (5-40) 04/26/18 02:27 ALT 26 units/L (7-56) 04/26/18 02:27 Alkaline Phosphatase 72 units/L (35-129) 04/26/18 02:27 Total Creatine Kinase 161 units/L (30-135) H 04/26/18 02:27 Troponin T < 0.010 ng/mL (0.00-0.029) 04/26/18 02:27 NT-Pro-B Natriuret Pep 182.7 pg/mL (0-900) 04/26/18 02:27 Total Protein 7.4 g/dL (6.3-8.2) 04/26/18 02:27 Albumin 4.1 g/dL (3.9-5) 04/26/18 02:27 Albumin/Globulin Ratio 1.2 % 04/26/18 02:27 Triglycerides 103 mg/dL (2-149) 04/28/18 04:14 Cholesterol 218 mg/dL (50-199) H 04/28/18 04:14 LDL Cholesterol Direct 156 mg/dL (50-130) H 04/28/18 04:14 HDL Cholesterol 39 mg/dL (40-59) L 04/28/18 04:14 Cholesterol/HDL Ratio 5.58 % 04/28/18 04:14 Urine Opiates Screen Presumptive negative 04/26/18 10:47 Urine Methadone Screen Presumptive negative 04/26/18 10:47 Ur Barbiturates Screen Presumptive negative 04/26/18 10:47 Ur Phencyclidine Scrn Presumptive negative 04/26/18 10:47 Ur Amphetamines Screen Presumptive negative 04/26/18 10:47 U Benzodiazepines Scrn Presumptive negative 04/26/18 10:47 Urine Cocaine Screen Presumptive negative 04/26/18 10:47 U Marijuana (THC) Screen Presumptive negative 04/26/18 10:47 Drugs of Abuse Note Disclamer 04/26/18 10:47 Nutrition/Malnutrition Assess - Dietary Evaluation Nutrition/Malnutrition Findings: Nutrition Notes Start: 04/30/18 13:38 Freq: Status: Active Protocol: Document 04/30/18 13:38 CP (Rec: 04/30/18 14:38 CP [id number]) Co-Sign 04/30/18 13:38 LP Nutrition Notes Need for Assessment generated from: MD Order Initial or Follow up Assessment Current Diagnosis Acute Kidney Injury Hyperlipidemia Other Pertinent Diagnosis Hypotension, AMS Current Diet Mechanical soft Labs/Tests BUN 61 Cr 2.5 Glu 140 Pertinent Medications Reviewed Height 5 ft 3 in Weight 92.7 kg [place] Body Weight (kg) 52.27 BMI 36.1 Weight Status Obese Subjective/Other Information MD consult for TF. Per nurse, pt. is unable to tolerate mech soft d/t AMS. Percent of energy/protein needs met: 98%/93% Burn Absent Trauma Absent #1 Nutrition Diagnosis Inadequate oral intake Etiology AMS, encephalopathy As Evidenced by Signs and Symptoms Per nurse, reporting unable to tolerate mech soft diet. Is patient on ventilator? No Is Patient Ambulatory and/or Out of Bed No REE-([facility]-confined to bed) [phone] Calculation Used for Recommendations [facility] Additional Notes PRO: 93-148g (1-1.6g/kg) Fluids: 1mL/kcal Nutrition Intervention Change Diet Order: TF Nutrition Support: Glucerna 1.2 at 60 mL/hr. Kcal 1,728 Protein (gm) 86 Carbohydrates (gm) 165 Fat (gm) 86 Fluid (mL) 1,159 Fiber (gm) 16 Goal #1 Start TF Goal #2 TF tolerance Anticipated Discharge Needs: Unable to determine at this time Follow-Up By: 05/04/18 Additional Comments F/U: TF start/TF tolerance
[2018-05-01] MEDS ORDERED: NACL 3% 100 ML IV ONE (13:00)
[2018-05-01] MEDS ORDERED: PEPCID PO SCH (14:00)
--- NOTE | 2018-05-01 15:48 | Progress Note ---
Assessment and Plan Impression: 1. Embolic strokes 2. Hypertension, malignant 3. Post stroke edema Plan: 1. 3% saline 100 ml over 30 min then check Na 2 hours later, repeat dose as needed aiming to get Na at least to 155. 2. Transfer to [facility] later today. CDs of imaging to be sent with her. 30 minutes critical care time spent with this patient including review of multiple CT images. Subjective Date of service: 05/01/18 Principal diagnosis: stroke Interval history: HPI: This 63-year-old female was seen again in follow-up for strokes. Although she was sleepy earlier this morning she has become more alert and is eating now with the help of the nurse. The physical therapist has been able to get her to lift her left arm and extend her fingers. She was unable to stand however on her legs according to the therapist despite some increased extensor tone on the right. CT scan showed some early shift to me at least for perhaps 5 mm left to right which I spoke earlier to Dr. Thomas, neuro critical care at [facility] who has accepted her but does not yet have a bed available (this later changed so that he is going to transfer her today). I told him I was planning to give her 3% hypertonic saline 100 mils over an hour. He suggested giving it over 30 minutes. I told him I was aiming for a sodium of 155. Objective - Exam Narrative Exam: General appearance: well developed but obese (per BMI) early 60s white female in NAD. Neurologic Exam: Mental status: awake, alert. Tracks me. No response to orientation questions and turns of head nodding or shaking and no verbal output but obeys some commands at least to imitation. Cranial nerves: no blink to threat on the right , PERRL, EOMs are improved and gets past midline laterally to the right with tracking my voice, no grimace to supraorbital pressure or to command, cannot assess Schroeder, cannot assess shoulder shrug or tongue protrusion (perhaps apraxic). Cerebellar: by imitation eventually brings left finger to nose without tremor. Cannot do [id number]. Motor Exam Upper Extremities: plegic on the right, no response to nailbed pressure or palmar rub. Lips left upper extremity to nose and at times spontaneously with perhaps a little reflexive grasp but no clear financial aids officer to command. Tone is normal. Motor Exam Lower Extremities: plegic on the right but withdraws a little to plantar rub. Wiggles left foot but not to command though lifts her left leg off the bed 4 inches at least, spontaneously. Tone is normal in both lower extremities. - Vital Sign Vital Signs - 12hr 05/01/18 05/01/18 05/01/18 04:00 04:30 05:00 Temperature Pulse Rate 87 97 H 88 Respiratory 18 18 19 Rate Blood Pressure 114/63 163/74 163/74 O2 Sat by Pulse 94 91 94 Oximetry 05/01/18 05/01/18 05/01/18 05:30 06:00 06:30 Temperature Pulse Rate 84 79 79 Respiratory 17 17 17 Rate Blood Pressure 117/55 131/54 131/54 O2 Sat by Pulse 99 98 98 Oximetry 05/01/18 05/01/18 05/01/18 07:00 07:30 08:00 Temperature 98.8 F Pulse Rate 74 77 87 Respiratory 19 18 21 Rate Blood Pressure 131/54 128/66 128/66 O2 Sat by Pulse 99 100 100 Oximetry 05/01/18 05/01/18 05/01/18 08:30 09:00 09:16 Temperature Pulse Rate 97 H 105 H Respiratory 12 16 Rate Blood Pressure 152/101 189/91 O2 Sat by Pulse 96 97 96 Oximetry 05/01/18 05/01/18 05/01/18 09:31 10:00 10:31 Temperature Pulse Rate 91 H 84 92 H Respiratory 19 18 18 Rate Blood Pressure 179/95 117/57 117/57 O2 Sat by Pulse 98 97 99 Oximetry 05/01/18 05/01/18 05/01/18 11:00 11:31 11:51 Temperature 99.8 F H Pulse Rate 84 88 Respiratory 19 17 Rate Blood Pressure 134/62 134/62 O2 Sat by Pulse 96 99 Oximetry 05/01/18 05/01/18 05/01/18 12:00 12:31 13:00 Temperature Pulse Rate 91 H 83 91 H Respiratory 18 20 21 Rate Blood Pressure 157/83 157/83 170/81 O2 Sat by Pulse 98 99 98 Oximetry 05/01/18 13:31 Temperature Pulse Rate 92 H Respiratory 21 Rate Blood Pressure 168/88 O2 Sat by Pulse Oximetry - Laboratory Findings CBC and BMP: 04/30/18 04:24 05/01/18 04:43 Abnormal Lab Findings: Abnormal Labs 04/26/18 04/26/18 04/26/18 02:27 02:27 02:27 WBC RBC Hgb Hct MCHC 35 H Meagher % (Auto) Meagher # Seg Neutrophils % Seg Neutrophils # APTT 21.6 L Potassium 3.4 L Chloride BUN Creatinine Glucose 157 H POC Glucose Hemoglobin A1c Magnesium Total Creatine Kinase Cholesterol LDL Cholesterol Direct HDL Cholesterol 04/26/18 04/27/18 04/28/18 02:27 05:34 04:14 WBC RBC Hgb Hct MCHC Meagher % (Auto) Meagher # Seg Neutrophils % Seg Neutrophils # APTT Potassium Chloride 94.8 L BUN 18 H 20 H Creatinine Glucose 124 H 138 H POC Glucose Hemoglobin A1c Magnesium Total Creatine Kinase 161 H Cholesterol 218 H LDL Cholesterol Direct 156 H HDL Cholesterol 39 L 04/28/18 04/29/18 04/29/18 15:15 05:34 05:34 WBC 13.3 H RBC 5.13 H Hgb 14.7 H Hct 44.8 H MCHC Meagher % (Auto) 9.6 H Meagher # 1.3 H Seg Neutrophils % 73.7 H Seg Neutrophils # 9.8 H APTT Potassium Chloride BUN Creatinine Glucose POC Glucose 109 H Hemoglobin A1c 6.5 H Magnesium Total Creatine Kinase Cholesterol LDL Cholesterol Direct HDL Cholesterol 04/29/18 04/29/18 04/29/18 05:34 12:21 15:40 WBC RBC Hgb Hct MCHC Meagher % (Auto) Meagher # Seg Neutrophils % Seg Neutrophils # APTT Potassium Chloride 97.7 L BUN 39 H Creatinine 1.7 H D Glucose 154 H POC Glucose 130 H 126 H Hemoglobin A1c Magnesium Total Creatine Kinase Cholesterol LDL Cholesterol Direct HDL Cholesterol 04/30/18 04/30/18 05/01/18 04:24 04:24 04:43 WBC 14.4 H RBC Hgb 14.7 H Hct 43.9 H MCHC Meagher % (Auto) 8.3 H Meagher # 1.2 H Seg Neutrophils % 75.0 H Seg Neutrophils # 10.8 H APTT Potassium Chloride 107.8 H BUN 61 H 61 H Creatinine 2.5 H 1.3 H Glucose 140 H 130 H POC Glucose Hemoglobin A1c Magnesium 2.40 H Total Creatine Kinase Cholesterol LDL Cholesterol Direct HDL Cholesterol
--- NOTE | 2018-05-01 15:52 | Discharge Summary ---
Providers - Providers Date of Admission: 04/26/18 06:11 Date of discharge: 05/01/18 Attending physician: IZAIAH SALGADO 04/27/18 17:06 psychiatry consult [Consult to Mental Health] [CONS] Routine Reason For Exam: depression Place consult to:: technology sales consultant Notified:: Phone number called:: [phone] Was contact made?: No Time called:: 17:19 Comment:: no answer 04/28/18 12:51 Occupational Therapy Evaluate and Treat [CONS] Routine Comment: Reason For Exam: Neuro deficits Physical Therapy Evaluation and Treat [CONS] Routine Comment: Reason For Exam: Neuro deficits 04/28/18 12:52 Speech Therapy Evaluation and Treat [CONS] Routine Reason For Exam: swallow eval 04/28/18 13:01 Speech Therapy Evaluation and Treat [CONS] Stat Reason For Exam: cough noted w/swallowing 04/28/18 14:25 Consult to Physician [CONS] Routine Comment: Consulting Provider: MAREN MURCIA Physician Instructions: Reason For Exam: AMS/? CVA 04/28/18 16:02 Consult to Physician [CONS] Routine Comment: I informed Consulting Provider: ALYCE VEGA Physician Instructions: Reason For Exam: Cr Care consult ,Acute CVA, accelerated HTN 04/30/18 08:39 Consult to Physician [CONS] Routine Comment: Consulting Provider: SAKINA MENDOZA Physician Instructions: Reason For Exam: SMILEY Primary care physician: INTERNAL MEDICINE HOSPITALIST Hospitalization Reason for admission: Altered level of consciousness/hypertensive emergency Condition: Critical Pertinent studies: --Workup so far: 04/26-- CT head w/o; , normal study 04/28--MRI brain;Moderate to large area of subacute ischemia posterior division of left MCA and watershed regions between the left JEAN CLAUDE and MCA, Chronic focal infarcts in the right kim radiata and right temporal white matter, Nonspecific chronic white matter changes 04/28--Carotid Doppler; no hemodynamically significant stenosis less than 50% CTA neck; CTA head; could not be done due to SMILEY 04/28--ECHO:No evidence of intracardiac shunt, EF 55-60% 04/30--CT head;Large acute to subacute left territorial infarct in left posterior parietal, occipital and along the corpus callosum. Mild [id number]-dorbo midline shift. 0.36 cm 04/30--Renal ultrasound:normal 05/01--EEG Hospital course: 63-year-old female patient with significant past medical history of hypertension, noncompliant with medications, was admitted through emergency room on 04/26/2018 with altered level of consciousness and headache dizziness and uncontrolled blood pressures.Patient was initially evaluated in the ER noted to have very high blood pressures of 205/105, 215/159, patient was managed with multiple antihypertensives, blood pressures were brought to reasonable levels, CT head was negative ,Patient had intermittent confusion, and son reports that patient has been having this intermittent confusion for some time since her 5 years ago and her daughter one month ago.. On 04/28/18' morning during rounds patient was noted to have worsening mental status , confusion and inability to communicate and mild rt sided weakness. Dicussed with the nurse,Time of onset of these symptoms not known, hence not a candidate for TPA, Neuro workup ordered and d/w neurology ,consult requested, not a candidate for TPA MRI brain revealed acute CVA, evaluated by neurologist, Neurologist advised to transfer the pt to ICU for close observation The patient had extensive neuro workup, transferred to ICU . Physical therapy and occupational therapy and speech therapy evaluated, recommend mechanical soft diet Last night patient had change in mental status CT head without contrast ordered by the neurologist ,revealed, Large acute to subacute left territorial infarct in left pos posterior parietal occipital and along the corpus callosum mild left to right midline shift 0.36 cm. Neurology started the patient on hypertonic saline and supportive care and advised to transfer to neuro ICU Discussed with [place] physician and initiated the transfer process to [facility] neuro ICU, for further evaluation and management Patient is alert and awake, aphasic, vital signs stable with Right-sided weakness. Patient is transferred to neuro ICU ,[facility]. Patient is hemodynamically stable with guarded prognosis. 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] Obesity BMI 37.1 Disposition: DC/TX-70 ANOTHER TYPE HLTHCARE Time spent for discharge: 35 min Core Measure Documentation - Palliative Care Palliative Care/ Comfort Measures: Not Applicable - Core Measures Any of the following diagnoses?: stroke - Stroke Discharge Requirements Statin for LDL = or >70 mg/dl on DC: Yes Anticoag for atrial fib/atrial flutter: Not Applicable Antithrombotic for ischemic stroke: Yes Exam - Constitutional Vitals: Temp Pulse Resp BP Pulse Ox 99.8 F H 92 H 21 168/88 98 05/01/18 11:51 05/01/18 13:31 05/01/18 13:31 05/01/18 13:31 05/01/18 13:00 General appearance: Present: no acute distress, other (aphasic) - EENT Eyes: Present: PERRL, EOM intact - Neck Neck: Present: supple, normal ROM - Respiratory Respiratory: bilateral: diminished, negative: rales, rhonchi, wheezing - Cardiovascular Rhythm: regular Heart Sounds: Present: S1 & S2 - Extremities Extremities: no ischemia, No edema - Abdominal General gastrointestinal: Present: soft, non-tender, non-distended, normal bowel sounds - Integumentary Integumentary: Present: clear, warm - Musculoskeletal Musculoskeletal: right sided weakness - Psychiatric Psychiatric: other (aphasic) - Neurologic Neurologic: other (right-sided hemiparesis,aphasia) Plan Activity: other (PT/OT) Diet: other (as tolerated) Special Instructions: physical therapy, occupational therapy, other (Speech Ther apy) Additional Instructions: Transfer to [facility] to neuro ICU for further evaluation and management Follow up with: PRIMARY CARE, [Primary Care Provider] - 3-5 Days
--- NOTE | 2018-05-01 16:33 | Progress Note ---
Assessment and Plan - Patient Problems (1) Acute kidney injury Current Visit: Yes Status: Acute Plan to address problem: Suspect prerenal azotemia secondary to hypotension/volume depletion. Kidney function improving. Continue Gentle volume repletion. Follow-up electrolytes and renal function closely. (2) Hypertensive emergency Current Visit: Yes Status: Acute Plan to address problem: The BP was elevated on presentation then became now low. Blood pressure has improved. Parameters to hold antihypertensive medications in place. Goal systolic blood pressure 160 mmHg. (3) Acute cerebral infarction Current Visit: Yes Status: Acute Plan to address problem: Patient with large ischemic stroke with cerebral edema being transferred to [place] per neurologist (4) Hypotension Current Visit: Yes Status: Acute Plan to address problem: Hold diuretic and JOVANY inhibitor. Patient has parameters to hold anti- hypertensive medications. (5) Encephalopathy Current Visit: Yes Status: Acute Plan to address problem: Consider repeat CT head if mental status does not improve. Patient being followed by neurologist also. Subjective Date of service: 05/01/18 Principal diagnosis: stroke Interval history: Patient seen lying in bed. She is awake. Squeezing my hands on request. No nverbal Objective - Exam Narrative Exam: Middle aged female in no acute distress HEENT: NCAT, pink and dry oral mucous membrane Neck: Supple, no venous distention CVS: S1S2 RRR with no murmur, rub or gallop Chest: Clear to auscultation Abdomen: Protuberant, soft, nontender, no organomegaly, bowel sounds are present Extremities: No edema Skin warm and dry with no rash Genitourinary: Deferred Neuro: Awake, expressive aphasia - Vital Signs Vital signs: Vital Signs - 12hr 05/01/18 05/01/18 05/01/18 04:30 05:00 05:30 Temperature Pulse Rate 97 H 88 84 Respiratory 18 19 17 Rate Blood Pressure 163/74 163/74 117/55 O2 Sat by Pulse 91 94 99 Oximetry 05/01/18 05/01/18 05/01/18 06:00 06:30 07:00 Temperature Pulse Rate 79 79 74 Respiratory 17 17 19 Rate Blood Pressure 131/54 131/54 131/54 O2 Sat by Pulse 98 98 99 Oximetry 05/01/18 05/01/18 05/01/18 07:30 08:00 08:30 Temperature 98.8 F Pulse Rate 77 87 97 H Respiratory 18 21 12 Rate Blood Pressure 128/66 128/66 152/101 O2 Sat by Pulse 100 100 96 Oximetry 05/01/18 05/01/18 05/01/18 09:00 09:16 09:31 Temperature Pulse Rate 105 H 91 H Respiratory 16 19 Rate Blood Pressure 189/91 179/95 O2 Sat by Pulse 97 96 98 Oximetry 05/01/18 05/01/18 05/01/18 10:00 10:31 11:00 Temperature Pulse Rate 84 92 H 84 Respiratory 18 18 19 Rate Blood Pressure 117/57 117/57 134/62 O2 Sat by Pulse 97 99 96 Oximetry 05/01/18 05/01/18 05/01/18 11:31 11:51 12:00 Temperature 99.8 F H Pulse Rate 88 91 H Respiratory 17 18 Rate Blood Pressure 134/62 157/83 O2 Sat by Pulse 99 98 Oximetry 05/01/18 05/01/18 05/01/18 12:31 13:00 13:31 Temperature Pulse Rate 83 91 H 92 H Respiratory 20 21 21 Rate Blood Pressure 157/83 170/81 168/88 O2 Sat by Pulse 99 98 Oximetry - Lab 04/30/18 04:24 05/01/18 04:43 Most recent lab results Calcium 9.0 mg/dL (8.4-10.2) 05/01/18 04:43 Phosphorus 3.40 mg/dL (2.5-4.5) 05/01/18 04:43 Magnesium 2.40 mg/dL (1.7-2.3) H 05/01/18 04:43 Medications & Allergies - Medications Allergies/Adverse Reactions: Allergies codeine Allergy (Verified 04/26/18 01:46) Unknown meperidine Allergy (Verified 04/26/18 01:46) Unknown Penicillins Allergy (Verified 04/26/18 01:46) Unknown Active Medications: Generic Name Dose Route Start Last Admin Trade Name Freq PRN Reason Stop Dose Admin Aspirin 300 mg 04/30/18 11:00 04/30/18 10:31 Aspirin NV 300 mg [facility] Administration Atorvastatin Calcium 40 mg 04/28/18 22:00 05/01/18 01:46 [facility] Citalopram Hydrobromide 20 mg 04/30/18 20:00 05/01/18 11:55 Celexa PO Not Given QDAY LEONARD Famotidine 20 mg 05/01/18 14:00 Pepcid PO DAILY LEONARD Heparin Sodium (Porcine) 5,000 unit 04/29/18 14:00 05/01/18 05:33 Heparin SUB-Q 5,000 unit Q8HR LEONARD Administration Hydralazine HCl 10 mg 04/26/18 05:58 04/28/18 06:23 Apresoline IV 10 mg Q4H PRN Administration Blood Pressure Hydralazine HCl 25 mg 04/26/18 10:00 05/01/18 06:39 Apresoline PO Not Given Q8HR LEONARD Nicardipine HCl 50 mg/ Sodium 250 mls @ 25 mls/hr 04/28/18 16:00 Chloride IV TITR LEONARD Protocol 5 MG/HR Sodium Chloride 1,000 mls @ 125 mls/hr 04/30/18 09:00 05/01/18 05:32 Nacl 0.9% 1000 Ml IV 125 mls/hr DIRECT LEONARD Administration Metoprolol Tartrate 25 mg 04/27/18 17:05 05/01/18 11:56 Lopressor PO Not Given BID LEONARD Sodium Chloride 10 ml 04/28/18 12:51 Sodium Chloride Flush Syringe 10 Ml IV PRN PRN LINE FLUSH
[2018-05-01 16:54] VITALS: BP 176/86
--- NOTE | 2018-05-01 17:31 | Electroencephalogram Report ---
Electroencephalogram EEG Date of exam: 04/30/18 History: Behavioral changes leading to admission followed later by MRI showing left posterior stroke including cortex and stroke along the left anterior cerebral artery territory periventricularly. EEG is done to rule out occult complex partial seizures affecting speech, which could be caused by the posterior cortical stroke. Description: EEG findings: This 23 channel digital EEG (1 channel of EKG showing tachycardia) was done over 21 minutes using the international 10/20 montage. There is 9 Hz alpha activity which is fragmentary in the posterior leads and some anterior beta activity. There is slowing at C3-P3 on the left as for example in the first page of the EEG. There is also slowing at F3-C3 on the left and on transverse montage slowing at T3-C3. Although industrial cleaning technician lists a portion as being during "sleep", no sleep architecture is seen. No epileptiform activity is seen. Interpretation: EEG reading: Moderately abnormal EEG due to slowing in the left centrotemporal and frontocentral regions which correlates with imaging findings. This EEG does not exclude epilepsy of partial onset. Up to 4 EEGs over several months may be needed to capture interictal epileptiform activity
--- NOTE | 2018-05-01 18:21 | Progress Note ---
Assessment and Plan Acute Hypoxemic Respiratory Failure Acute Left CVA SMILEY Hypertensive Emergency Headache at admission Obesity Acute Encephalopathy - To transfer to neuro-underwear cutter service - continue neuro checks - s/p hypertonic saline - continue supplemental oxygen to keep sats> 90% - continue secondary prevention with anti-lipid, platelet and anti-hypertensive therapy - neurology evaluation ongoing - deploy BIPAP qhs for sleep disordered breathing s/p CVA - PT/OT - mobility protocol for pressure ulcer prophylaxis - ST evaluation - enteral nutrition if fails - aspiration precautions - GI & VTE prophylaxis - Flu & pneumovax addressed per protocol - continue other care per attending / other consultants .... care plan discussed at length with son at bedside .... re-evaluate in am & prn The high probability of a clinically significant, sudden or life-threatening deterioration of the [cardiac, respiratory & neurologic] system(s) required my full and direct attention, intervention and personal management. The aggregate critical care time was [32] minutes without overlap. Time includes spent on; [x] Data Review and interpretation [x] Patient assessment and monitoring of vital signs [x] Documentation [x] Medication orders and management Subjective Date of service: 05/01/18 Principal diagnosis: Acute Hypoxemic Resp Failure; Acute Left CVA; SMILEY; Hypertensive Emergency Interval history: Patient is seen today for: Acute Hypoxemic Respiratory Failure; Acute Left CVA; SMILEY; Hypertensive Emergency; Headache at admission Seen and examined at bedside; 24hour events reviewed; nursing and respiratory care staff consulted; no adverse overnight events reported to me; resting peacefully in bed; repeat neuroimaging with new midline shift; started on hyp ertonic saline; no acute clinical deterioration but remains encephalopathic Objective Vital Signs - 12hr 05/01/18 05/01/18 05/01/18 06:30 07:00 07:30 Temperature Pulse Rate 79 74 77 Respiratory 17 19 18 Rate Blood Pressure 131/54 131/54 128/66 O2 Sat by Pulse 98 99 100 Oximetry 05/01/18 05/01/18 05/01/18 08:00 08:30 09:00 Temperature 98.8 F Pulse Rate 87 97 H 105 H Respiratory 21 12 16 Rate Blood Pressure 128/66 152/101 189/91 O2 Sat by Pulse 100 96 97 Oximetry 05/01/18 05/01/18 05/01/18 09:16 09:31 10:00 Temperature Pulse Rate 91 H 84 Respiratory 19 18 Rate Blood Pressure 179/95 117/57 O2 Sat by Pulse 96 98 97 Oximetry 05/01/18 05/01/18 05/01/18 10:31 11:00 11:31 Temperature Pulse Rate 92 H 84 88 Respiratory 18 19 17 Rate Blood Pressure 117/57 134/62 134/62 O2 Sat by Pulse 99 96 99 Oximetry 05/01/18 05/01/18 05/01/18 11:51 12:00 12:31 Temperature 99.8 F H Pulse Rate 91 H 83 Respiratory 18 20 Rate Blood Pressure 157/83 157/83 O2 Sat by Pulse 98 99 Oximetry 05/01/18 05/01/18 05/01/18 13:00 13:31 14:00 Temperature Pulse Rate 91 H 92 H 90 Respiratory 21 21 21 Rate Blood Pressure 170/81 168/88 139/73 O2 Sat by Pulse 98 89 Oximetry 05/01/18 05/01/18 05/01/18 14:31 15:00 15:31 Temperature Pulse Rate 99 H 98 H 97 H Respiratory 17 20 18 Rate Blood Pressure 139/73 163/84 163/84 O2 Sat by Pulse 95 76 L 94 Oximetry 05/01/18 05/01/18 16:01 16:31 Temperature Pulse Rate 102 H 102 H Respiratory 10 L 20 Rate Blood Pressure 176/86 176/86 O2 Sat by Pulse 79 L 94 Oximetry Constitutional: alert, appears uncomfortable, other (obese elderly looking CF, normocephalic and atraumatic with mildly increased respiratory effort at rest) Eyes: non-icteric ENT: oropharynx moist, other (large neck circumference) Neck: supple, no lymphadenopathy, no JVD Effort: mildly labored Ascultation: Bilateral: clear, diminished breath sounds Percussion: Bilateral: not dull Cardiovascular: regular rate and rhythm Gastrointestinal: normoactive bowel sounds, soft, non-tender, non-distended Integumentary: normal Extremities: no cyanosis, no edema, pink and warm, pulses normal Neurologic: pupils equal and round, other (right hemiparesis) Psychiatric: other (unable to assess) CBC and BMP: 04/30/18 04:24 05/01/18 15:14 ABG, PT/INR, D-dimer: PT/INR, D-dimer PT 12.9 Sec. (12.2-14.9) 04/26/18 02:27 INR 0.92 (0.87-1.13) 04/26/18 02:27 Abnormal lab findings: Abnormal Labs 04/26/18 04/26/18 04/26/18 02:27 02:27 02:27 WBC RBC Hgb Hct MCHC 35 H Bull[place] % (Auto) [place] # Seg Neutrophils % Seg Neutrophils # APTT 21.6 L Potassium 3.4 L Chloride BUN Creatinine Glucose 157 H POC Glucose Hemoglobin A1c Magnesium Total Creatine Kinase Cholesterol LDL Cholesterol Direct HDL Cholesterol 04/26/18 04/27/18 04/28/18 02:27 05:34 04:14 WBC RBC Hgb Hct MCHC [place] % (Auto) [place] # Seg Neutrophils % Seg Neutrophils # APTT Potassium Chloride 94.8 L BUN 18 H 20 H Creatinine Glucose 124 H 138 H POC Glucose Hemoglobin A1c Magnesium Total Creatine Kinase 161 H Cholesterol 218 H LDL Cholesterol Direct 156 H HDL Cholesterol 39 L 04/28/18 04/29/18 04/29/18 15:15 05:34 05:34 WBC 13.3 H RBC 5.13 H Hgb 14.7 H Hct 44.8 H MCHC [place] % (Auto) 9.6 H [place] # 1.3 H Seg Neutrophils % 73.7 H Seg Neutrophils # 9.8 H APTT Potassium Chloride BUN Creatinine Glucose POC Glucose 109 H Hemoglobin A1c 6.5 H Magnesium Total Creatine Kinase Cholesterol LDL Cholesterol Direct HDL Cholesterol 04/29/18 04/29/18 04/29/18 05:34 12:21 15:40 WBC RBC Hgb Hct MCHC [place] % (Auto) [place] # Seg Neutrophils % Seg Neutrophils # APTT Potassium Chloride 97.7 L BUN 39 H Creatinine 1.7 H D Glucose 154 H POC Glucose 130 H 126 H Hemoglobin A1c Magnesium Total Creatine Kinase Cholesterol LDL Cholesterol Direct HDL Cholesterol 04/30/18 04/30/18 05/01/18 04:24 04:24 04:43 WBC 14.4 H RBC Hgb 14.7 H Hct 43.9 H MCHC [place] % (Auto) 8.3 H [place] # 1.2 H Seg Neutrophils % 75.0 H Seg Neutrophils # 10.8 H APTT Potassium Chloride 107.8 H BUN 61 H 61 H Creatinine 2.5 H 1.3 H Glucose 140 H 130 H POC Glucose Hemoglobin A1c Magnesium 2.40 H Total Creatine Kinase Cholesterol LDL Cholesterol Direct HDL Cholesterol Chest x-ray: image reviewed Allied health notes reviewed: nursing
== END 2018-05-01 17:15 | disposition short-term general hospital (02) | DRG 64 ==
LOC: ED 01:33 → 3A 06:11 → CC1 04-28 17:57
PROVIDERS: ADMIT Internal Medicine; ATTEND Internal Medicine
PROC: 4A00X4Z Measurement of Central Nervous Electrical Activity, External Approach (ICD-10-PCS; principal; 2018-04-30)
DX: I63.9 Cerebral infarction, unspecified (principal); J96.01 Acute respiratory failure with hypoxia; N17.0 Acute kidney failure with tubular necrosis; G93.41 Metabolic encephalopathy; I16.1 Hypertensive emergency; G81.91 Hemiplegia, unspecified affecting right dominant side; R47.01 Aphasia; E66.9 Obesity, unspecified; I95.9 Hypotension, unspecified; I10 Essential (primary) hypertension; E87.6 Hypokalemia; M19.90 Unspecified osteoarthritis, unspecified site; R41.0 Disorientation, unspecified; E78.5 Hyperlipidemia, unspecified; Z88.5 Allergy status to narcotic agent; Z88.0 Allergy status to penicillin; Z68.37 Body mass index [BMI] 37.0-37.9, adult; Z91.14 Patient's other noncompliance with medication regimen; Z90.49 Acquired absence of other specified parts of digestive tract; Z86.718 Personal history of other venous thrombosis and embolism; Z86.711 Personal history of pulmonary embolism
CPT/HCPCS: 36415; 70450; 70551; 71045; 76770; 80048; 80053; 80061; 80307; 82550; 82962; 83036; 83735; 83880; 84100; 84295; 84484; 85025; 85610; 85730; 90686; 93005; 93010; 93306; 93880; 94760; 95819; 96374; G0378; A9270-GY; J0360; J1644; J2405; J7030